=== PATIENT | female | born 1990 | race Caucasian/White ===

== ENCOUNTER → 2021-01-19 11:06 | Outpatient (CLI) | payer OTHER, SELFPAY ==
[2021-01-19 12:54] LABS: HCG Quantitative /Beta subunit 7609.1 mIU/mL
== END ==
PROVIDERS: Referring Provider Obstetrics & Gynecology; Visit Provider Obstetrics & Gynecology
DX: Z34.01 Encounter for supervision of normal first pregnancy, first trimester (principal)
CPT/HCPCS: 36415; 84702

== ENCOUNTER → 2021-02-03 11:58 | Outpatient (CLI) | payer OTHER, SELFPAY ==
--- NOTE | 2021-02-03 11:59 | DI.US.S_ITS ---
PROCEDURE: US OB <= 14 WEEKS FETUS INDICATIONS: DATES OUTSIDE/PRIOR DATING DATA: Last menstrual period (LMP): Unknown. LMP-based estimated date of delivery (SATISH): Not applicable. First dating scan (date and location): 02/03/2021. Estimated date of delivery (SATISH) from first dating scan: 09/21/2021. TECHNIQUE: Real-time scanning was performed of the fetus and maternal pelvic organs, with image documentation. Endovaginal scanning was also performed to better visualize the fetus and maternal ovaries. COMPARISON: None. FINDINGS: Embryo: [place]-rump length is 1.1 centimeters, corresponding to a gestational age of 7 weeks 1 day. Heart rate: 168 beats per minute Measurement variability in dating: +/- 4 weeks by LMP, +/- 7 days by mean sac diameter (use before 6 weeks gestation if crown-rump length not able to be measured), +/- 5 days by crown-rump length (up to 8 weeks 6 days gestation), +/- 7 days by crown-rump length (up to 13 weeks 6 days gestation). Maternal organs: Ovaries unremarkable other than a right corpus luteum cyst. IMPRESSION: Single live intrauterine gestation with estimated ultrasound age of 7 weeks 1 day. Dictated by: Rosendo Leonardo M.D. on 02/03/2021 at 12:42 Approved by: Rosendo Leonardo M.D. on 02/03/2021 at 12:43
== END ==
PROVIDERS: Referring Provider Obstetrics & Gynecology; Visit Provider Obstetrics & Gynecology
DX: Z34.01 Encounter for supervision of normal first pregnancy, first trimester (principal); Z3A.01 Less than 8 weeks gestation of pregnancy
CPT/HCPCS: 76801; 76817

== ENCOUNTER → 2021-02-27 13:30 | Outpatient (CLI) | payer OTHER, SELFPAY ==
[2021-02-27 14:22] LABS: Add Manual Diff / Slide Review NO; Basophils Absolute Auto 0 /uL (0-100); Basophils Percent Auto 0.2 % (0-2); Eosinophils Absolute Auto 100 /uL (0-450); Eosinophils Percent Auto 0.6 % (2-4); Hemoglobin 11.5 g/dL (12.0-16.0); Lymphocytes Absolute Auto 3400 /uL (1100-4500); Lymphocytes Percent Auto 18.3 % (25-40); Mean Corpuscular HGB Conc 32.9 % (30-36); Mean Corpuscular Hemoglobin 28.8 PG (26-34); Mean Corpuscular Volume 87.5 fL (80-100); Monocytes Absolute Auto 900 /uL (0-900); Monocytes Percent Auto 4.9 % (3-14); Neutrophils Absolute Auto 13900 /uL (1500-7000); Platelet Count 354 X10^3/uL (150-400); Red Cell Distribution Width 13.3 % (11.6-14.8); White Blood Cell Count 18.3 X10^3/uL (4.5-11.0)
[2021-02-27 14:38] LABS: Appearance Urine UA CLOUDY; Bilirubin Urine UA NEGATIVE (NEGATIVE); Color Urine UA YELLOW; Glucose Urine UA NEGATIVE (Negative); Ketones Urine UA 1+ (NEGATIVE); Leukocyte Esterase Urine UA 2+ (NEGATIVE); Nitrite Urine UA NEGATIVE (Negative); Occult Blood Urine UA 2+ (Negative); Protein Urine UA 1+ (Negative); Specific Gravity Urine UA >=1.030 (1.000-1.035); Urobilinogen Urine UA 0.2 E.U./dL (0.2)
[2021-02-27 14:43] LABS: Bacteria Urine Many (>30); RBC Urine 5-10/HPF (0-5/HPF); Squamous Epithelial Cell Urine >30 /HPF (0-5/HPF); WBC Urine 10-30/HPF (0-5/HPF)
[2021-02-27 16:30] LABS: HIV 1 & 2 Ab/Ag 4th Gen Combo NEGATIVE (NEGATIVE); Hep C Virus Ab w/Reflex Quant NEGATIVE s/c (NEGATIVE); Hepatitis B Surface Antigen NEGATIVE s/c (NEGATIVE)
[2021-02-28 08:11] LABS: RPR Screen Non Reactive (Non Reactive); Varicella IgG Antibody <135 index (Immune >165)
== END ==
PROVIDERS: Referring Provider Obstetrics & Gynecology; Visit Provider Obstetrics & Gynecology
DX: Z34.01 Encounter for supervision of normal first pregnancy, first trimester (principal)
CPT/HCPCS: 36415; 80055; 81003; 81015; 86787; 86803; 86850; 86900; 86901; 87086; 87389

== ENCOUNTER 2021-03-28 13:55 | Emergency (ER) | payer OTHER, SELFPAY ==
[2021-03-28 14:12] VITALS: BP 148/71; PULSE 87; RESP 20; TEMP 36.6; O2SAT 100; BMI 37.8
[2021-03-28 14:40] LABS: Amorphous Sediment Urine 1+; Bacteria Urine Many (>30); Culture Indicated Urine Cult Not Indicated; RBC Urine 1-5/HPF (0-5/HPF); Squamous Epithelial Cell Urine >30 /HPF (0-5/HPF); WBC Urine >100/HPF (0-5/HPF)
--- NOTE | 2021-03-28 16:01 | ED_ITS ---
HPI - General Adult General Chief complaint: Abdominal Pain Stated complaint: Lower Lt Abd Pain Time Seen by Provider: 03/28/21 15:49 Source: patient Mode of arrival: Ambulatory Limitations: no limitations History of Present Illness HPI narrative: Patient is a 31-year-old female at approximately 14 weeks EGA who is here for evaluation of left-sided abdominal pain. States that it is started than the past 24 hours. No urinary symptoms. Does have some constipation but this is not unusual for her. No vaginal bleeding. No loss of fluid. No fevers. No urinary symptoms. No back pain. Nausea vomiting is improved. She has seen her OB doctor during this . She has had a ultrasound that has confirmed an intrauterine . Related Data Home Medications Medication Instructions Recorded Confirmed albuterol sulfate 90 mcg/actuation 1 inh INHALATION Q4-6H PRN 02/11/21 02/11/21 breath activated powder inhaler prenat.vits,bentley,ywa-[id number]-vfvoj 1 tab PO DAILY 02/11/21 02/11/21 Allergies Allergy/AdvReac Type Severity Reaction Status Date / Time No Known Drug Allergies Allergy Unverified 02/11/21 13:50 Review of Systems Respiratory Respiratory: Reports as per HPI and Reports system reviewed and no additional complaints, except as documented Gastrointestinal Gastrointestinal: Reports as per HPI and Reports system reviewed and no additional complaints, except as documented Genitourinary Genitourinary: Reports system reviewed and no additional complaints, except as documented and Reports as per HPI Musculoskeletal Musculoskeletal: Reports system reviewed and no additional complaints, except as documented Integumentary/Breasts Skin/Breast: Reports system reviewed and no additional complaints, except as documented Hematologic/Lymphatic On Anticoagulants: No Patient History Medical History ADHD (~1996) Asthma Degenerative disc disease (~2010) Depression Osteoarthritis (~2010) Scoliosis (~2010) Surgical History (Updated 02/11/21 @ 14:02 by Papito Ireland RN) [place] teeth removed (~2018) Family History (Updated 02/11/21 @ 14:00 by Papito Ireland RN) Mother Hypertension Hyperlipidemia Diabetes mellitus Depression TIA (transient ischemic attack) Father Rheumatoid arthritis Shingles Grandmother Diabetes mellitus TIA (transient ischemic attack) Cancer Grandfather Cancer Grandmother Unknown family medical history Grandfather Unknown family medical history Social History marital status: unmarried,living together household members: significant other lives independently: Yes caregiver/support person: No pets and animals: Yes (3 cats, 11 rabits, rescues cats and rabbits) occupational status: employed current occupational exposures/hazards: Yes (high stress enviornment) Previous occupational history: [employer] jaziel/quaker: None special jaziel needs: No travel history: recent (drove to [facility]) Smoking Status: Never smoker alcohol intake: former (prepregnancy very rare allergic) substance use type: does not use Smoking Status: Never smoker Substance Use Type: does not use Exam Initial Vital Signs Initial Vital Signs: Vital Signs Temperature 97.9 F 03/28/21 14:12 Pulse Rate 87 03/28/21 14:12 Respiratory Rate 20 03/28/21 14:12 Blood Pressure 148/71 H 03/28/21 14:12 Pulse Oximetry 100 03/28/21 14:12 Const General: cooperative and healthy appearing GI Palpation: soft, No firm and tender (Left adnexa slight tenderness) Skin General: no rashes or lesions noted Neuro General: patient alert, patient awake and moves all extremities Extrem General: normal to inspection Psych Appearance: grossly normal and well kempt Course Orders Ordered: ED Orders 03/28/21 14:10 Urine Microscopic Stat Vital Signs Vital signs: Vital Signs - 8 hr 03/28/21 14:12 Temperature 97.9 F Pulse Rate 87 Respiratory Rate 20 Blood Pressure 148/71 H Pulse Oximetry 100 Medical Decision Making Lab Data Labs: Lab Results 03/28/21 Range/Units 14:10 Urine RBC 1-5/hpf (0-5/HPF) Urine WBC >100/hpf H (0-5/HPF) Ur Squamous Epith Cells >30 /hpf H (0-5/HPF) Amorphous Sediment 1+ Urine Bacteria Many (>30) H (None) Ur Culture Indicated? Cult not indicated Point of Care Testing Test Results Positive Urine Dip Bedside Urine Glucose Negative Bedside Urine Bilirubin - Negative Bedside Urine Ketone - Negative Urine Specific [place] 1.020 Bedside Urine Occult Blood +/- Bedside Urine pH 7.0 Bedside Urine Protein +/- 15 Bedside Urine Urobilinogen - Negative Bedside Urine Nitrite - Negative Bedside Urine Leukocytes ++ 125 Esterase Point of care testing: Point of Care Testing Test Results Positive Urine Dip Bedside Urine Glucose Negative Bedside Urine Bilirubin - Negative Bedside Urine Ketone - Negative Urine Specific [place] 1.020 Bedside Urine Occult Blood +/- Bedside Urine pH 7.0 Bedside Urine Protein +/- 15 Bedside Urine Urobilinogen - Negative Bedside Urine Nitrite - Negative Bedside Urine Leukocytes ++ 125 Esterase MDM Narrative Medical decision making narrative: Bedside ultrasound does show intrauterine . There is movement and cardiac activity with a heart rate of 150. Urinalysis does appear to be a contaminated specimen. Urine culture was pending at the time of discharge. No vomiting. Nontoxic appearing. I feel that we can hold on further workup for now. Provided reassurance to the patient. She was given return precautions. She will keep all of her schedule medical point. She expressed understanding and agreement. Discharge Plan Departure Patient Disposition: Home Clinical Impression: Abdominal pain during Instructions: Acute Abdominal Pain Activity Restrictions/Additional Instructions: The bedside ultrasound does show movement with a heartbeat of 150. Keep all of your scheduled OB appointments. Return to the emergency department for any new or worsening symptoms Prescriptions: No Action prenat.vits,bentley,ajy-doia-[id number] Tablet 1 tab PO DAILY 0RF albuterol sulfate 90 mcg/actuation aerosol powdr breath activated 1 inh inhalation Q4-6H [id number] Referrals: Buster Gomez MD [Primary Care Provider] -
[2021-03-28 16:34] VITALS: BP 130/69; PULSE 77; RESP 18; O2SAT 100
== END 2021-03-28 16:38 | disposition home or self-care (01) ==
PROVIDERS: Emergency Provider Emergency Medicine; PCP Obstetrics & Gynecology
DX: O26.892 Other specified pregnancy related conditions, second trimester (principal); R10.9 Unspecified abdominal pain; Z3A.14 14 weeks gestation of pregnancy
CPT/HCPCS: 81003; 81015; 81025; 87086; 99282; 99283

== ENCOUNTER → 2021-04-28 10:43 | Outpatient (CLI) | payer OTHER, SELFPAY ==
[2021-05-04 21:08] LABS: AFP, Serum 31.5 ng/mL (.); Calc Gestational Age EDD (.); Estriol, Free 2.62 ng/mL (.); Inhibin A, Dimeric 134.08 pg/mL (.); Inhibin A, MoM 0.91 (.); Maternal Ethnicity Caucasian (.); Maternal Weight 189 lbs (.); Number of Fetuses No (.); OSBR Risk 1 IN 10000 (.); Results Report (.); Test Results *Screen Negative* (.); hCG, MoM 0.63 (.); hCG, Serum 14180 mIU/mL (.)
== END ==
PROVIDERS: PCP Obstetrics & Gynecology; Referring Provider Obstetrics & Gynecology; Visit Provider Obstetrics & Gynecology
DX: Z34.02 Encounter for supervision of normal first pregnancy, second trimester (principal); Z3A.19 19 weeks gestation of pregnancy
CPT/HCPCS: 36415; 82105; 82677; 84702; 86336

== ENCOUNTER → 2021-05-11 09:50 | Outpatient (CLI) | payer OTHER, SELFPAY ==
--- NOTE | 2021-05-11 09:51 | DI.US.S_ITS ---
PROCEDURE: US OB >= 14 WEEKS FETUS INDICATIONS: ANATOMY OUTSIDE/PRIOR DATING DATA: First dating scan (date and location): 02/03/2021. Estimated date of delivery (SATISH) from first dating scan: 09/21/2021. The calculations are made using the ultrasound SATISH of 09/21/2021. TECHNIQUE: Real-time scanning was performed of the fetus, with image documentation and biometric measurements. COMPARISON: [facility], , OB <= 14 WEEKS FETUS, 02/03/2021, 12:16. FINDINGS: General: A single living intrauterine gestation is present. Presentation: Vertex. Placenta: Placental position is fundal , without previa. Amniotic fluid index: 13.2 cm, normal range is 5-24 cm. heart rate: 143 beats per minute. Maternal cervical canal: 3.3 cm long. Normal lower limit is 2.5 cm. biometrics: Biparietal diameter: 20 weeks 3 days Head circumference: 20 weeks 4 days Abdominal circumference: 22 weeks Femur length: 21 weeks 5 days Clinically estimated gestational age: 21 weeks Composite gestational age from present scan: 21 weeks 1 day Estimated weight and percentile: 441 g; 80th percentile Anatomic survey: Neuro: Ventricles are non-dilated at less than 10 mm. Cisterna magna is normal at 3-11 mm. Cerebellum is normal in size and morphology. Nuchal skin fold: Normal at less than 6 mm between 14-21 weeks gestational age. Face: Nose and lips, facial profile are normal. Spine: No evidence for spina bifida. Heart: 4-chambered heart is present, with normal ventricular outflow tracts. Diaphragm: Diaphragm is intact. Stomach: Left-sided stomach is present. Kidneys: No hydronephrosis. Normal is less than 5 mm in 2nd trimester, less than 7 mm in 3rd trimester. Cord: 3-vessel cord has orthotopic insertion. Bladder: Normal in size. Extremities: All 4 extremities identified. IMPRESSION: 1. Single living IUP redemonstrated and interval growth is normal. 2. Normal anatomic survey. We strive to produce accurate, complete, and clear reports of imaging services. To assist us in improving patient care, this report was composed using standard report templates and voice recognition software. Therefore, it may contain abnormal punctuation, insertions and/or omissions. Occasional wrong-word or sound-alike substitutions may occur. Though we review the report and make efforts to correct it, we do recommend that the report be read carefully in proper context to recognize any text inaccuracies. Dictated by: Ramesh SMITH Interpreted: Ugo Hardy MD on 05/11/2021 at 12:58 Transcribed by: WILIAM on 05/11/2021 at 13:00 Approved by: Ugo Hardy M.D. on 05/11/2021 at 13:54
== END ==
PROVIDERS: PCP Obstetrics & Gynecology; Referring Provider Obstetrics & Gynecology; Visit Provider Obstetrics & Gynecology
DX: Z34.02 Encounter for supervision of normal first pregnancy, second trimester (principal); Z3A.21 21 weeks gestation of pregnancy
CPT/HCPCS: 76811

== ENCOUNTER → 2021-06-15 11:23 | Outpatient (CLI) | payer OTHER, SELFPAY ==
[2021-06-15 13:27] LABS: Hematocrit 32.6 % (36-46); Hemoglobin 11.1 g/dL (12.0-16.0)
[2021-06-15 14:01] LABS: GTT (PREG) 1 Hour PP 50gm Dose 116 mg/dL (76-139)
== END ==
PROVIDERS: PCP Obstetrics & Gynecology; Referring Provider Obstetrics & Gynecology; Visit Provider Obstetrics & Gynecology
DX: Z34.02 Encounter for supervision of normal first pregnancy, second trimester (principal); Z3A.25 25 weeks gestation of pregnancy
CPT/HCPCS: 82950; 85014; 85018

== ENCOUNTER → 2021-08-04 11:03 | Outpatient (CLI) | payer OTHER, SELFPAY ==
[2021-08-04 11:46] LABS: Creatinine Urine Random 65.3 mg/dL; Protein (Total) Urine Random 10 mg/dL (0-12); Protein Creatinine Ratio Urine 0.15 GRAM/24H
== END ==
PROVIDERS: PCP Obstetrics & Gynecology; Visit Provider Obstetrics & Gynecology
DX: O16.3 Unspecified maternal hypertension, third trimester (principal)
CPT/HCPCS: 82570; 84156

== ENCOUNTER 2021-08-04 11:04 | Outpatient (CLI) | payer OTHER, SELFPAY ==
--- NOTE | 2021-08-04 13:15 | PM.OBTRLD ---
Visit Information Visit Information Date of evaluation: 08/04/21 Primary OB Provider: Buster Gomez Reason for Evaluation: Yes non-stress test Comments/Additional reasons for admission: Mayda presents to the center for NST and blood pressure monitoring after elevated pressures noted at the time of her routine OB visit earlier today. PIH/pec labs obtained and submitted. Vital Signs Vital Signs: 137/78; 124/60; 122/72; 123/76 [facility] Medical History ADHD (~1996) Asthma Degenerative disc disease (~2010) Depression Osteoarthritis (~2010) Scoliosis (~2010) Surgical History [place] teeth removed (~2018) Family History Mother Hypertension Hyperlipidemia Diabetes mellitus Depression TIA (transient ischemic attack) Father Rheumatoid arthritis Shingles Grandmother Diabetes mellitus TIA (transient ischemic attack) Cancer Grandfather Cancer Grandmother Unknown family medical history Grandfather Unknown family medical history Social History marital status: unmarried,living together household members: significant other lives independently: Yes caregiver/support person: No pets and animals: Yes (3 cats, 11 rabits, rescues cats and rabbits) occupational status: employed current occupational exposures/hazards: Yes (high stress enviornment) Previous occupational history: [employer] jaziel/tenriism: None special jaziel needs: No travel history: recent (drove to [facility]) Smoking Status: Never smoker alcohol intake: former (prepregnancy very rare allergic) substance use type: does not use Review of Systems Review of Systems Narrative: Patient denies visual changes, headaches, or right upper quadrant pain. Baby is active. Exam Narrative Exam Narrative: See office note, 08/04/2021. Objective Labs Labs: PLT: 285 Urine Protein:Creatinine : .15 LFT's: Uric Acid: Evaluation Evaluation Baseline heart rate: 135 Variability: Moderate (11-25) monitor accelerations: Present Monitor Decelerations: Absent Category of Tracing: Reactive Diagnosis, Plan/Disposition Plan/Disposition Plan: ASSESSMENT 1. Intrauterine gestation, Mustafa, 33+ weeks gestational age 2. Gestational hypertension, non severe with no laboratory or clinical evidence of preeclampsia PLAN 1. TID BP monitoring at home 2. Patient counseled at length regarding signs/symptoms of severe blood pressure elevation/preeclampsia 3. Weekly NSTs with blood pressure monitoring and labs as needed in association with weekly CORAL visits for the duration of the . 4. Initiate antihypertensive therapy if blood pressures approach/reach severe levels and deliver as appropriate should preeclampsia developed. OB Disposition: home
== END 2021-08-04 13:08 | disposition home or self-care (01) ==
LOC: LABOR 11:58 → OB 08-06 06:55
PROVIDERS: PCP Obstetrics & Gynecology; Referring Provider Obstetrics & Gynecology; Visit Provider Obstetrics & Gynecology
DX: O13.3 Gestational [pregnancy-induced] hypertension without significant proteinuria, third trimester (principal); O47.03 False labor before 37 completed weeks of gestation, third trimester; Z3A.33 33 weeks gestation of pregnancy; O16.3 Unspecified maternal hypertension, third trimester
CPT/HCPCS: 36415; 59025; 80053; 82570; 84156; 84550; 85025; G0378; G0379

== ENCOUNTER → 2021-08-04 11:08 | Outpatient (CLI) | payer OTHER, SELFPAY ==
[2021-08-04 12:19] LABS: Add Manual Diff / Slide Review NO; Basophils Absolute Auto 0 /uL (0-100); Basophils Percent Auto 0.2 % (0-2); Eosinophils Absolute Auto 100 /uL (0-450); Eosinophils Percent Auto 0.4 % (2-4); Hemoglobin 12.3 g/dL (12.0-16.0); Lymphocytes Absolute Auto 2400 /uL (1100-4500); Lymphocytes Percent Auto 15.1 % (25-40); Mean Corpuscular HGB Conc 34.1 % (30-36); Mean Corpuscular Hemoglobin 29.6 PG (26-34); Mean Corpuscular Volume 86.9 fL (80-100); Monocytes Absolute Auto 1100 /uL (0-900); Neutrophils Absolute Auto 12400 /uL (1500-7000); Neutrophils Percent Auto 77.3 % (50-75); Platelet Count 285 X10^3/uL (150-400); Red Blood Cell Count 4.15 X10^6/uL (4.0-5.2); Red Cell Distribution Width 13.3 % (11.6-14.8)
[2021-08-04 18:11] LABS: Alanine Aminotransferase 15 IU/L (<35); Albumin 3.7 g/dL (3.5-5.0); Albumin Globulin Ratio 0.9 (1.0-2.8); Alkaline Phosphatase 135 U/L (38-126); Aspartate Aminotransferase 24 IU/L (14-36); BUN Creatinine Ratio 13.5 (6-22); Bilirubin Total 0.4 mg/dL (0.2-1.3); Blood Urea Nitrogen 7 mg/dL (7-17); Carbon Dioxide 21 mmol/L (22-32); Chloride 107 mmol/L (98-107); Estimated Glomerular Filt Rate > 60.0 mL/min (>60); Globulin 4.1 g/dL (1.7-4.1); Glucose 92 mg/dL (70-100); HEMOLYSIS < 15 (0-50); Potassium 3.3 mmol/L (3.4-5.1); Sodium 137 mmol/L (137-145); Total Protein 7.8 g/dL (6.3-8.2); Uric Acid 5.3 mg/dL (2.5-6.2)
== END ==
PROVIDERS: PCP Obstetrics & Gynecology; Referring Provider Obstetrics & Gynecology; Visit Provider Obstetrics & Gynecology
DX: O16.3 Unspecified maternal hypertension, third trimester (principal)
CPT/HCPCS: 36415; 80053; 84550; 85025

== ENCOUNTER 2021-08-05 09:11 | Emergency (ER) | payer OTHER, SELFPAY ==
[2021-08-05] VITALS (16 sets, daily range): BP systolic 127–152; BP diastolic 67–90; PULSE 68–88; RESP 15–20; TEMP 37.2; O2SAT 95–100; BMI 38.0
--- NOTE | 2021-08-05 09:16 | DI.US.S_ITS ---
PROCEDURE: US OB >= 14 WEEKS FETUS INDICATIONS: HTN OUTSIDE/PRIOR DATING DATA: Last menstrual period (LMP): Un known LMP-based estimated date of delivery (SATISH): Unknown. First dating scan (date and location): 02/03/2021 Estimated date of delivery (SATISH) from first dating scan: 09/21/2021 The calculations are made using the study generated SATISH of 09/21/2021. TECHNIQUE: Real-time scanning was performed of the fetus, with image documentation and biometric measurements. Endovaginal scanning: Not indicated COMPARISON: [facility], OB >= 14 WEEKS FETUS, 05/11/2021, 10:17. FINDINGS: General: A single living intrauterine gestation is present. Presentation: Vertex Placenta: Placental position is fundal, without previa. Amniotic fluid index: 21.0 cm, normal range is 5-24 cm. Single deepest vertical pocket is 11.6 cm. heart rate: 144 beats per minute. Maternal cervical canal: 3.1 cm long. Normal lower limit is 2.5 cm. biometrics: Biparietal diameter: 8.4 cm, 33 weeks, 6 days. Head circumference: 30.5 cm, 33 weeks, 6 days. Abdominal circumference: 29.5 cm, 33 weeks, 3 days. Femur length: 6.6 cm, 34 weeks, 0 day. Clinically estimated gestational age: 33 weeks, 2 days Composite gestational age from present scan: 33 weeks, 6 days. Estimated weight and percentile: 2259 g, 55% IMPRESSION: 1. Single live intrauterine gestation with fetus in vertex presentation. heart rate is 144 beats per minute. JEWEL equals 21 cm and is within normal limits. Normal growth. Estimated weight is at 55%. We strive to produce accurate, complete, and clear reports of imaging services. To assist us in improving patient care, this report was composed using standard report templates and voice recognition software. Therefore, it may contain abnormal punctuation, insertions and/or omissions. Occasional wrong-word or sound-alike substitutions may occur. Though we review the report and make efforts to correct it, we do recommend that the report be read carefully in proper context to recognize any text inaccuracies. Dictated by: Jarod Montes M.D. on 08/05/2021 at 10:12 Approved by: Jarod Montes M.D. on 08/05/2021 at 10:14
--- NOTE | 2021-08-05 09:25 | ED.PREGNANCY ---
HPI - General Chief complaint: Hypertension Stated complaint: hypertension, 32 weeks Time Seen by Provider: 08/05/21 09:11 Source: patient Mode of arrival: EMS Limitations: no limitations History of Present Illness HPI Narrative: Patient is a 31-year-old female presenting today with hypertension. She is followed by Dr. Gomez here at the hospital. She was seen and evaluated yesterday noted to have slightly elevated blood pressures in the 140s. Presenting today with higher blood pressures. At home she reports a systolic of 160 or 170, EMS were initially reported a systolic of 205 however her current blood pressure is 148/80. She has minimal epigastric pain. She has no headache visual changes abdominal pain vaginal bleeding or any vaginal leakage. She had not yet been started on any sort of hypertension medications. She has attempted to call her OB as she was instructed to put there was no answer she got nervous and came to the emergency department. Related Data Home Medications Medication Instructions Recorded Confirmed albuterol sulfate 90 mcg/actuation 1 inh INHALATION Q4-6H PRN 02/11/21 07/21/21 breath activated powder inhaler prenat.vits,bentley,[id number] 1 tab PO DAILY 02/11/21 07/21/21 Previous Rx's Medication Instructions Recorded ondansetron 4 mg disintegrating 4 mg PO Q6-8H PRN #20 tab 04/01/21 tablet metronidazole 0.75 % vaginal gel 1 appful VAGINAL BEDTIME 5 Days 05/22/21 (Metrogel Vaginal) #70 g labetalol 200 mg tablet 400 mg PO BID #60 tab 08/05/21 Allergies Allergy/AdvReac Type Severity Reaction Status Date / Time No Known Drug Allergies Allergy Verified 08/05/21 09:15 Review of Systems Review of Systems Narrative: GENERAL: Denies chills, fatigue, malaise, fever, sweats, travel HEENT: Denies sinus pain, ear pain, sore throat, difficulty swallowing, neck pain RESPIRATORY: Denies dyspnea, cough, wheezing, hemoptysis, sputum. CARDIOVASCULAR: Denies chest pain, palpitations, orthopnea, edema GASTROINTESTINAL: Denies nausea, vomiting, abdominal pain, diarrhea, constipation, melena. : Denies dysuria, frequency, incontinence, hematuria, urinary retention, flank pain. MUSCULOSKELETAL: Denies weakness, joint pain, or bony pain SKIN: No rash, no erythema, no pruritus NEUROLOGIC: Denies weakness, dizziness, headache, numbness, change in speech, confusion PSYCHIATRIC: No concerning psychosocial issues. 12 point review of systems is negative except for those stated above and HPI Exam Initial Vital Signs Initial Vital Signs: Vital Signs Temperature 99.0 F 08/05/21 09:10 Pulse Rate 88 08/05/21 09:10 Respiratory Rate 15 08/05/21 09:10 Blood Pressure 148/88 H 08/05/21 09:10 Pulse Oximetry 100 08/05/21 09:10 GENERAL: Appearing 31 year painand in no acute distress. HEENT: Head atraumatic,EOMI, pupils reactive, face symmetric, moist mucous membranes CARDIOVASCULAR: Regular rate and rhythm without murmurs, rubs or gallops. RESPIRATORY: Breath sounds equal bilaterally, no wheezes rales or rhonchi. ABDOMEN: Soft, gravid no tenderness : No CVA tenderness EXTREMITIES: Normal range of motion, no clubbing or edema. Neurovascularly intact NEUROLOGICAL: Alert and oriented x4.Normal gait and speech. SKIN: Warm, dry, no laceration, no petechiae, no rashes or lesions. Course Orders Ordered: ED Orders 08/05/21 09:16 US OB >= 14 weeks Fetus Stat 08/05/21 09:26 CBC Auto Diff [Complete Blood Count AUTO DIFF] Stat CMP [Comprehensive Metabolic Panel] Stat Magnesium Stat PT [Prothrombin Time INR] Stat PTT [Partial Thromboplastin Time] Stat 08/05/21 10:15 UA Complete [Urinalysis and Microscopic] Stat Discontinued Medications Labetalol HCl (Labetalol 20 Mg/4 Ml Syringe) 10 mg IV NOW ONE Stop: 08/05/21 09:26 Last Admin: 08/05/21 09:34 Dose: 10 mg Documented by: RICKEY Labetalol HCl (Labetalol 100 Mg Tablet) 200 mg PO NOW ONE Stop: 08/05/21 11:01 Last Admin: 08/05/21 11:39 Dose: 200 mg Documented by: RICKEY Vital Signs Vital signs: Vital Signs - 8 hr 08/05/21 09:10 08/05/21 09:16 08/05/21 09:30 Temperature 99.0 F Pulse Rate 88 80 80 Respiratory Rate 15 15 15 Blood Pressure 148/88 H 139/90 Pulse Oximetry 100 100 100 08/05/21 09:34 08/05/21 09:45 08/05/21 09:54 Temperature Pulse Rate 86 68 79 Respiratory Rate 17 20 Blood Pressure 139/90 152/67 H Pulse Oximetry 99 99 08/05/21 10:05 08/05/21 10:21 08/05/21 10:28 Temperature Pulse Rate 82 82 Respiratory Rate 18 Blood Pressure 152/67 H 149/74 H Pulse Oximetry 95 08/05/21 10:30 08/05/21 10:45 08/05/21 11:00 Temperature Pulse Rate 81 82 87 Respiratory Rate 20 20 18 Blood Pressure Pulse Oximetry 99 98 97 08/05/21 11:15 08/05/21 11:29 08/05/21 11:30 Temperature Pulse Rate 88 88 Respiratory Rate 20 20 Blood Pressure 127/70 Pulse Oximetry 97 97 08/05/21 11:39 Temperature Pulse Rate 88 Respiratory Rate Blood Pressure 127/70 Pulse Oximetry MDM - OB/Uterine Contractions Lab Data Result diagrams: 08/05/21 09:26 08/05/21 09:26 Labs: Lab Results 08/05/21 08/05/21 08/05/21 Range/Units 09:26 09:26 09:26 WBC 17.2 H (4.5-11.0) X10^3/uL RBC 4.23 (4.0-5.2) X10^6/uL Hgb 12.4 (12.0-16.0) g/dL Hct 36.8 (36-46) % MCV 87.0 (80-100) fL MCH 29.2 (26-34) PG MCHC 33.6 (30-36) % RDW 13.5 (11.6-14.8) % Plt Count 274 (150-400) X10^3/uL Neut % (Auto) 74.9 (50-75) % Lymph % (Auto) 17.1 L (25-40) % [place] % (Auto) 6.9 (3-14) % Eos % (Auto) 0.5 L (2-4) % Baso % (Auto) 0.6 (0-2) % Neut # (Auto) 87856 H (9347-9204) /uL Lymph # (Auto) 2900 (6783-9068) /uL [place] # (Auto) 1200 H (0-900) /uL Eos # (Auto) 100 (0-450) /uL Baso # (Auto) 100 (0-100) /uL PT 11.4 (10.1-12.7) SECONDS INR 1.0 (0.9-1.3) APTT 28 (26.4-36.2) SECONDS Sodium 138 (137-145) mmol/L Potassium 3.8 (3.4-5.1) mmol/L Chloride 106 (98-107) mmol/L Carbon Dioxide 22 (22-32) mmol/L BUN 5 L (7-17) mg/dL Creatinine 0.52 (0.52-1.04) mg/dL Estimated GFR > 60.0 (>60) mL/min BUN/Creatinine Ratio 9.6 (6-22) Glucose 82 (70-100) mg/dL Calcium 8.8 (8.4-10.2) mg/dL Magnesium 1.7 (1.6-2.3) mg/dL Total Bilirubin 0.5 (0.2-1.3) mg/dL AST 26 (14-36) IU/L ALT 14 (<35) IU/L Alkaline Phosphatase 153 H (38-126) U/L Total Protein 8.2 (6.3-8.2) g/dL Albumin 3.8 (3.5-5.0) g/dL Globulin 4.4 H (1.7-4.1) g/dL Albumin/Globulin Ratio 0.9 L (1.0-2.8) Urine Color Urine Appearance Urine pH (4.5-8.0) Ur Specific [place] (1.000-1.035) Urine Protein (Negative) Urine Glucose (UA) (Negative) g/dL Urine Ketones (NEGATIVE) Urine Occult Blood (Negative) Urine Nitrate (Negative) Urine Bilirubin (NEGATIVE) Urine Urobilinogen (0.2) E.U./dL Ur Leukocyte Esterase (NEGATIVE) Urine RBC (0-5/HPF) Urine WBC (0-5/HPF) Ur Squamous Epith Cells (0-5/HPF) Urine Bacteria (None) Ur Culture Indicated? 08/05/21 Range/Units 10:15 WBC (4.5-11.0) X10^3/uL RBC (4.0-5.2) X10^6/uL Hgb (12.0-16.0) g/dL Hct (36-46) % MCV (80-100) fL MCH (26-34) PG MCHC (30-36) % RDW (11.6-14.8) % Plt Count (150-400) X10^3/uL Neut % (Auto) (50-75) % Lymph % (Auto) (25-40) % [place] % (Auto) (3-14) % Eos % (Auto) (2-4) % Baso % (Auto) (0-2) % Neut # (Auto) (3878-2613) /uL Lymph # (Auto) (8412-0898) /uL [place] # (Auto) (0-900) /uL Eos # (Auto) (0-450) /uL Baso # (Auto) (0-100) /uL PT (10.1-12.7) SECONDS INR (0.9-1.3) APTT (26.4-36.2) SECONDS Sodium (137-145) mmol/L Potassium (3.4-5.1) mmol/L Chloride (98-107) mmol/L Carbon Dioxide (22-32) mmol/L BUN (7-17) mg/dL Creatinine (0.52-1.04) mg/dL Estimated GFR (>60) mL/min BUN/Creatinine Ratio (6-22) Glucose (70-100) mg/dL Calcium (8.4-10.2) mg/dL Magnesium (1.6-2.3) mg/dL Total Bilirubin (0.2-1.3) mg/dL AST (14-36) IU/L ALT (<35) IU/L Alkaline Phosphatase (38-126) U/L Total Protein (6.3-8.2) g/dL Albumin (3.5-5.0) g/dL Globulin (1.7-4.1) g/dL Albumin/Globulin Ratio (1.0-2.8) Urine Color Yellow Urine Appearance Cloudy Urine pH 7.5 (4.5-8.0) Ur Specific [place] 1.010 (1.000-1.035) Urine Protein Negative (Negative) Urine Glucose (UA) Negative (Negative) g/dL Urine Ketones Negative (NEGATIVE) Urine Occult Blood Trace-intact (Negative) Urine Nitrate Negative (Negative) Urine Bilirubin Negative (NEGATIVE) Urine Urobilinogen 0.2 (0.2) E.U./dL Ur Leukocyte Esterase 3+ H (NEGATIVE) Urine RBC None seen (0-5/HPF) Urine WBC 10-30/hpf H (0-5/HPF) Ur Squamous Epith Cells >30 /hpf H (0-5/HPF) Urine Bacteria None seen (None) Ur Culture Indicated? Cult not indicated Urine Dip Bedside Urine Glucose Negative Bedside Urine Bilirubin - Negative Bedside Urine Ketone - Negative Urine Specific [place] 1.015 Bedside Urine Occult Blood +/- Bedside Urine pH 7.5 Bedside Urine Protein - Negative Bedside Urine Urobilinogen 0.2 Bedside Urine Nitrite - Negative Bedside Urine Leukocytes +++ 500 Esterase Imaging Data US - OB: Radiologist's Impression: PROCEDURE:? US OB >= 14 WEEKS FETUS ? INDICATIONS:? HTN ? OUTSIDE/PRIOR DATING DATA:? Last menstrual period (LMP):? Un known LMP-based estimated date of delivery (SATISH):? Unknown. First dating scan (date and location):? 02/03/2021 Estimated date of delivery (SATISH) from first dating scan:? 09/21/2021 The calculations are made using the study generated SATISH of 09/21/2021. ? TECHNIQUE:? Real-time scanning was performed of the fetus, with image documentation and biometric measurements.? Endovaginal scanning:? Not indicated ? COMPARISON:[facility], US OB >= 14 WEEKS FETUS, 05/11/2021, 10:17. ? ? FINDINGS:? ? General:? A single living intrauterine gestation is present.? Presentation:? Vertex Placenta:? Placental position is fundal, without previa.? Amniotic fluid index:? 21.0 cm, normal range is 5-24 cm.? Single deepest vertical pocket is 11.6 cm. heart rate:? 144 beats per minute.? Maternal cervical canal:? 3.1 cm long.? Normal lower limit is 2.5 cm.? ? biometrics:? Biparietal diameter:? 8.4 cm, 33 weeks, 6 days. Head circumference:? 30.5 cm, 33 weeks, 6 days. Abdominal circumference:? 29.5 cm, 33 weeks, 3 days. Femur length:? 6.6 cm, 34 weeks, 0 day. Clinically estimated gestational age:? 33 weeks, 2 days Composite gestational age from present scan:? 33 weeks, 6 days. Estimated weight and percentile:? 2259 g, 55% ? ? IMPRESSION:? 1. Single live intrauterine gestation with fetus in vertex presentation.? heart rate is 144 beats per minute.? JEWEL equals 21 cm and is within normal limits.? Normal growth.? Estimated weight is at 55%. ? We strive to produce accurate, complete, and clear reports of imaging services. To assist us in improving patient care, this report was composed using standard report templates and voice recognition software. Therefore, it may contain abnormal punctuation, insertions and/or omissions. Occasional wrong-word or sound-alike substitutions may occur. Though we review the report and make efforts to correct it, we do recommend that the report be read carefully in proper context to recognize any text inaccuracies. ? Dictated by: Jarod Montes M.D. on 08/05/2021 at 10:12 ? ? Approved by: Jarod Montes M.D. on 08/05/2021 at 10:14 ? MDM Narrative Medical decision making narrative: Patient's blood pressure is mildly elevated no sign of preeclampsia at this time no protein in her urine. She is given 1 dose of labetalol here in the ED it does improve a little bit and then starts to rise again slowly. She is otherwise asymptomatic. 11am Dr. Gomez, patient's OB has been notified of patient's findings. Agrees at this time no some evidence of preeclampsia home he will send in prescription of labetalol 200 mg twice a day and strongly encourage is patient to follow-up in office. Discharge Plan Departure Patient Disposition: Home Clinical Impression: Hypertension affecting Instructions: Pre-eclampsia Activity Restrictions/Additional Instructions: *You have been diagnosed with attention in *What to do: Please continue to check your blood pressures as previously directed with OB 3 times a day. If blood pressure is greater than 140/90 please report this and if blood pressure greater than 150/100 report to center. *Continue to take medications as directed Labetalol 200 mg twice a day--Dr. Gomez is sending this into the pharmacy for you if there are issues please call discussed with his nurse *Follow up with your primary care provider in 2-3 days or call [phone] Gomez and follow *Return to ER if you should have elevated blood pressures, abdominal pain, vaginal bleeding, headaches or any new, worsening or concerning symptoms Prescriptions: No Action ondansetron 4 mg tablet,disintegrating 4 mg PO Q6-8H PRN (Reason: nausea and vomiting) Qty: 20 2RF labetalol 200 mg tablet 400 mg PO BID Qty: 60 3RF prenat.vits,bentley,[id number] Tablet 1 tab PO DAILY 0RF albuterol sulfate 90 mcg/actuation aerosol powdr breath activated 1 inh inhalation Q4-6H PRN0RF metronidazole [Metrogel Vaginal] 0.75 % gel 1 appful vaginal BEDTIME 5 Days Qty: 70 4RF Referrals: Buster Gomez MD [Primary Care Provider] -
[2021-08-05 09:33] LABS: Add Manual Diff / Slide Review NO; Basophils Absolute Auto 100 /uL (0-100); Basophils Percent Auto 0.6 % (0-2); Eosinophils Absolute Auto 100 /uL (0-450); Eosinophils Percent Auto 0.5 % (2-4); Hematocrit 36.8 % (36-46); Hemoglobin 12.4 g/dL (12.0-16.0); Lymphocytes Absolute Auto 2900 /uL (1100-4500); Lymphocytes Percent Auto 17.1 % (25-40); Mean Corpuscular HGB Conc 33.6 % (30-36); Mean Corpuscular Hemoglobin 29.2 PG (26-34); Monocytes Absolute Auto 1200 /uL (0-900); Monocytes Percent Auto 6.9 % (3-14); Neutrophils Absolute Auto 12900 /uL (1500-7000); Neutrophils Percent Auto 74.9 % (50-75); Platelet Count 274 X10^3/uL (150-400); Red Blood Cell Count 4.23 X10^6/uL (4.0-5.2); Red Cell Distribution Width 13.5 % (11.6-14.8); White Blood Cell Count 17.2 X10^3/uL (4.5-11.0)
[2021-08-05] MEDS: LABETALOL 20 MG/4 ML SYRINGE 10 MG IV (09:34)
[2021-08-05 09:41] LABS: Prothrombin Time 11.4 SECONDS (10.1-12.7)
[2021-08-05 09:44] LABS: PTT Partial Thromboplastin Tim 28 SECONDS (26.4-36.2)
[2021-08-05 09:45] LABS: Alanine Aminotransferase 14 IU/L (<35); Albumin 3.8 g/dL (3.5-5.0); Albumin Globulin Ratio 0.9 (1.0-2.8); Alkaline Phosphatase 153 U/L (38-126); Aspartate Aminotransferase 26 IU/L (14-36); BUN Creatinine Ratio 9.6 (6-22); Bilirubin Total 0.5 mg/dL (0.2-1.3); Blood Urea Nitrogen 5 mg/dL (7-17); Calcium 8.8 mg/dL (8.4-10.2); Carbon Dioxide 22 mmol/L (22-32); Chloride 106 mmol/L (98-107); Estimated Glomerular Filt Rate > 60.0 mL/min (>60); Globulin 4.4 g/dL (1.7-4.1); Glucose 82 mg/dL (70-100); HEMOLYSIS 27 (0-50); Magnesium 1.7 mg/dL (1.6-2.3); Potassium 3.8 mmol/L (3.4-5.1); Sodium 138 mmol/L (137-145); Total Protein 8.2 g/dL (6.3-8.2)
[2021-08-05 10:22] LABS: Appearance Urine UA CLOUDY; Bilirubin Urine UA NEGATIVE (NEGATIVE); Color Urine UA YELLOW; Glucose Urine UA NEGATIVE (Negative); Ketones Urine UA NEGATIVE (NEGATIVE); Leukocyte Esterase Urine UA 3+ (NEGATIVE); Nitrite Urine UA NEGATIVE (Negative); Occult Blood Urine UA TRACE-INTACT (Negative); Protein Urine UA NEGATIVE (Negative); Urobilinogen Urine UA 0.2 E.U./dL (0.2)
[2021-08-05 10:23] LABS: pH Urine UA 7.5 (4.5-8.0)
[2021-08-05 10:28] LABS: Culture Indicated Urine Cult Not Indicated; RBC Urine None Seen (0-5/HPF); Squamous Epithelial Cell Urine >30 /HPF (0-5/HPF); WBC Urine 10-30/HPF (0-5/HPF)
[2021-08-05 10:29] LABS: Bacteria Urine None Seen
[2021-08-05] MEDS: LABETALOL 100 MG TABLET 200 MG PO (11:39)
== END 2021-08-05 11:41 | disposition home or self-care (01) ==
PROVIDERS: Emergency Provider Emergency Medicine; PCP Obstetrics & Gynecology
DX: O13.3 Gestational [pregnancy-induced] hypertension without significant proteinuria, third trimester (principal); Z3A.32 32 weeks gestation of pregnancy
CPT/HCPCS: 36415; 76811; 80053; 81001; 81003; 83735; 85025; 85610; 85730; 96374; 99284

== ENCOUNTER 2021-08-07 13:45 | Outpatient (CLI) | payer OTHER, SELFPAY ==
[2021-08-07 15:30] LABS: Add Manual Diff / Slide Review NO; Basophils Absolute Auto 0 /uL (0-100); Basophils Percent Auto 0.3 % (0-2); Eosinophils Absolute Auto 100 /uL (0-450); Eosinophils Percent Auto 0.4 % (2-4); Hematocrit 33.5 % (36-46); Hemoglobin 11.2 g/dL (12.0-16.0); Lymphocytes Absolute Auto 2500 /uL (1100-4500); Lymphocytes Percent Auto 15.6 % (25-40); Mean Corpuscular HGB Conc 33.5 % (30-36); Mean Corpuscular Hemoglobin 29.5 PG (26-34); Monocytes Absolute Auto 900 /uL (0-900); Monocytes Percent Auto 5.5 % (3-14); Neutrophils Absolute Auto 12700 /uL (1500-7000); Neutrophils Percent Auto 78.2 % (50-75); Platelet Count 263 X10^3/uL (150-400); Red Cell Distribution Width 13.8 % (11.6-14.8); White Blood Cell Count 16.3 X10^3/uL (4.5-11.0)
[2021-08-07 16:01] LABS: Creatinine Urine Random 86.8 mg/dL; Protein (Total) Urine Random 6 mg/dL (0-12); Protein Creatinine Ratio Urine 0.06 GRAM/24H
[2021-08-07 16:17] LABS: Alanine Aminotransferase 12 IU/L (<35); Albumin 3.5 g/dL (3.5-5.0); Albumin Globulin Ratio 0.9 (1.0-2.8); Alkaline Phosphatase 141 U/L (38-126); Aspartate Aminotransferase 20 IU/L (14-36); BUN Creatinine Ratio 14.8 (6-22); Bilirubin Total 0.4 mg/dL (0.2-1.3); Blood Urea Nitrogen 8 mg/dL (7-17); Calcium 8.6 mg/dL (8.4-10.2); Carbon Dioxide 19 mmol/L (22-32); Chloride 107 mmol/L (98-107); Estimated Glomerular Filt Rate > 60.0 mL/min (>60); Globulin 3.8 g/dL (1.7-4.1); Glucose 81 mg/dL (70-100); HEMOLYSIS < 15 (0-50); Potassium 3.8 mmol/L (3.4-5.1); Sodium 136 mmol/L (137-145); Total Protein 7.3 g/dL (6.3-8.2); Uric Acid 5.7 mg/dL (2.5-6.2)
--- NOTE | 2021-08-07 17:47 | PM.OBTRLD ---
Visit Information Visit Information Date of evaluation: 08/07/21 Primary OB Provider: Buster Gomez Reason for Evaluation: Yes non-stress test and Yes other Comments/Additional reasons for admission: Mayda presents for evaluation of her blood pressure and for NST after identifying marked elevations at home with her blood pressure cuff. [facility], LAT[facility] Medical History ADHD (~1996) Asthma Degenerative disc disease (~2010) Depression Osteoarthritis (~2010) Scoliosis (~2010) Surgical History [place] teeth removed (~2018) Family History Mother Hypertension Hyperlipidemia Diabetes mellitus Depression TIA (transient ischemic attack) Father Rheumatoid arthritis Shingles Grandmother Diabetes mellitus TIA (transient ischemic attack) Cancer Grandfather Cancer Grandmother Unknown family medical history Grandfather Unknown family medical history Social History marital status: unmarried,living together household members: significant other lives independently: Yes caregiver/support person: No pets and animals: Yes (3 cats, 11 rabits, rescues cats and rabbits) occupational status: employed current occupational exposures/hazards: Yes (high stress enviornment) Previous occupational history: [employer] jaziel/mandaen: None special jaziel needs: No travel history: recent (drove to [facility]) Smoking Status: Never smoker alcohol intake: former (prepregnancy very rare allergic) substance use type: does not use Objective Labs Result Diagrams: 08/07/21 15:11 08/07/21 15:11 Labs: Laboratory Results - last 24 hr 08/07/21 08/07/21 08/07/21 15:11 15:11 15:20 WBC 16.3 H RBC 3.80 L Hgb 11.2 L Hct 33.5 L MCV 88.0 MCH 29.5 MCHC 33.5 RDW 13.8 Plt Count 263 Neut % (Auto) 78.2 H Lymph % (Auto) 15.6 L [place] % (Auto) 5.5 Eos % (Auto) 0.4 L Baso % (Auto) 0.3 Neut # (Auto) 40837 H Lymph # (Auto) 2500 [place] # (Auto) 900 Eos # (Auto) 100 Baso # (Auto) 0 Sodium 136 L Potassium 3.8 Chloride 107 Carbon Dioxide 19 L BUN 8 Creatinine 0.54 Estimated GFR > 60.0 BUN/Creatinine Ratio 14.8 Glucose 81 Uric Acid 5.7 Calcium 8.6 Total Bilirubin 0.4 AST 20 ALT 12 Alkaline Phosphatase 141 H Total Protein 7.3 Albumin 3.5 Globulin 3.8 Albumin/Globulin Ratio 0.9 L U Random Total Protein 6 Urine Creatinine 86.8 Protein/Creatinin Ratio 0.06
== END 2021-08-07 15:15 | disposition home or self-care (01) ==
LOC: LABOR 14:36 → OB 08-11 15:13
PROVIDERS: Referring Provider Obstetrics & Gynecology; Visit Provider Obstetrics & Gynecology
DX: O13.3 Gestational [pregnancy-induced] hypertension without significant proteinuria, third trimester (principal); Z3A.33 33 weeks gestation of pregnancy
CPT/HCPCS: 36415; 59025; 80053; 82570; 84156; 84550; 85025; G0378; G0379

== ENCOUNTER 2021-08-09 10:47 | Observation (INO) | payer OTHER, SELFPAY | END 2021-08-09 12:10 | disposition home or self-care (01) | PROVIDERS: Admitting Provider Obstetrics & Gynecology; Referring Provider Obstetrics & Gynecology; Visit Provider Obstetrics & Gynecology | DX: Z03.71 Encounter for suspected problem with amniotic cavity and membrane ruled out (principal); Z3A.33 33 weeks gestation of pregnancy | CPT/HCPCS: 59025; 59050; G0378; G0379 ==

== ENCOUNTER 2021-08-11 10:09 | Outpatient (CLI) | payer OTHER, SELFPAY ==
[2021-08-11 11:07] LABS: Add Manual Diff / Slide Review NO; Basophils Absolute Auto 0 /uL (0-100); Basophils Percent Auto 0.3 % (0-2); Eosinophils Absolute Auto 100 /uL (0-450); Eosinophils Percent Auto 0.7 % (2-4); Hematocrit 35.1 % (36-46); Hemoglobin 11.6 g/dL (12.0-16.0); Lymphocytes Absolute Auto 2700 /uL (1100-4500); Lymphocytes Percent Auto 15.1 % (25-40); Mean Corpuscular HGB Conc 32.9 % (30-36); Mean Corpuscular Hemoglobin 29.3 PG (26-34); Mean Corpuscular Volume 89.1 fL (80-100); Monocytes Absolute Auto 1300 /uL (0-900); Monocytes Percent Auto 7.4 % (3-14); Neutrophils Absolute Auto 13800 /uL (1500-7000); Neutrophils Percent Auto 76.5 % (50-75); Platelet Count 285 X10^3/uL (150-400); Red Blood Cell Count 3.94 X10^6/uL (4.0-5.2)
[2021-08-11 11:28] LABS: Alanine Aminotransferase 18 IU/L (<35); Albumin 3.8 g/dL (3.5-5.0); Albumin Globulin Ratio 0.9 (1.0-2.8); Alkaline Phosphatase 157 U/L (38-126); Aspartate Aminotransferase 25 IU/L (14-36); BUN Creatinine Ratio 10.3 (6-22); Bilirubin Total 0.3 mg/dL (0.2-1.3); Blood Urea Nitrogen 6 mg/dL (7-17); Calcium 8.9 mg/dL (8.4-10.2); Carbon Dioxide 22 mmol/L (22-32); Chloride 104 mmol/L (98-107); Estimated Glomerular Filt Rate > 60.0 mL/min (>60); Globulin 4.1 g/dL (1.7-4.1); Glucose 80 mg/dL (70-100); HEMOLYSIS < 15 (0-50); Potassium 4.1 mmol/L (3.4-5.1); Sodium 135 mmol/L (137-145); Total Protein 7.9 g/dL (6.3-8.2)
[2021-08-11 12:01] LABS: Protein (Total) Urine Random 7 mg/dL (0-12); Protein Creatinine Ratio Urine 0.07 GRAM/24H
== END 2021-08-11 10:56 | disposition home or self-care (01) ==
LOC: OB 15:16
PROVIDERS: Referring Provider Obstetrics & Gynecology; Visit Provider Obstetrics & Gynecology
DX: O13.3 Gestational [pregnancy-induced] hypertension without significant proteinuria, third trimester (principal); Z3A.34 34 weeks gestation of pregnancy
CPT/HCPCS: 36415; 59025; 80053; 82570; 84156; 84550; 85025; G0378; G0379

== ENCOUNTER 2021-08-18 14:50 | Outpatient (CLI) | payer OTHER, SELFPAY ==
[2021-08-18 16:07] LABS: Add Manual Diff / Slide Review NO; Basophils Absolute Auto 0 /uL (0-100); Basophils Percent Auto 0.3 % (0-2); Eosinophils Absolute Auto 100 /uL (0-450); Eosinophils Percent Auto 0.8 % (2-4); Hematocrit 33.1 % (36-46); Hemoglobin 11.1 g/dL (12.0-16.0); Lymphocytes Absolute Auto 2400 /uL (1100-4500); Lymphocytes Percent Auto 15.4 % (25-40); Mean Corpuscular HGB Conc 33.6 % (30-36); Mean Corpuscular Hemoglobin 29.1 PG (26-34); Mean Corpuscular Volume 86.4 fL (80-100); Monocytes Absolute Auto 1000 /uL (0-900); Monocytes Percent Auto 6.3 % (3-14); Neutrophils Absolute Auto 11900 /uL (1500-7000); Neutrophils Percent Auto 77.2 % (50-75); Platelet Count 292 X10^3/uL (150-400); Red Blood Cell Count 3.83 X10^6/uL (4.0-5.2); Red Cell Distribution Width 14.1 % (11.6-14.8); White Blood Cell Count 15.4 X10^3/uL (4.5-11.0)
[2021-08-18 16:38] LABS: Uric Acid 5.1 mg/dL (2.5-6.2)
[2021-08-18 16:49] LABS: Alanine Aminotransferase 18 IU/L (<35); Albumin 3.4 g/dL (3.5-5.0); Albumin Globulin Ratio 0.9 (1.0-2.8); Alkaline Phosphatase 144 U/L (38-126); Aspartate Aminotransferase 23 IU/L (14-36); BUN Creatinine Ratio 16.1 (6-22); Bilirubin Total 0.4 mg/dL (0.2-1.3); Blood Urea Nitrogen 10 mg/dL (7-17); Calcium 8.7 mg/dL (8.4-10.2); Carbon Dioxide 22 mmol/L (22-32); Chloride 106 mmol/L (98-107); Estimated Glomerular Filt Rate > 60 mL/min (>60); Globulin 3.7 g/dL (1.7-4.1); Glucose 107 mg/dL (70-100); HEMOLYSIS < 15 (0-50); Potassium 3.7 mmol/L (3.4-5.1); Sodium 136 mmol/L (137-145); Total Protein 7.1 g/dL (6.3-8.2)
[2021-08-18 19:59] LABS: Creatinine Urine Random 88.8 mg/dL; Protein (Total) Urine Random 11 mg/dL (0-12); Protein Creatinine Ratio Urine 0.12 GRAM/24H
== END 2021-08-18 16:16 | disposition home or self-care (01) ==
LOC: LABOR 15:00 → OB 08-20 07:26
PROVIDERS: Referring Provider Obstetrics & Gynecology; Visit Provider Obstetrics & Gynecology
DX: O13.3 Gestational [pregnancy-induced] hypertension without significant proteinuria, third trimester (principal); Z3A.35 35 weeks gestation of pregnancy; Z34.03 Encounter for supervision of normal first pregnancy, third trimester
CPT/HCPCS: 36415; 59025; 80053; 82570; 84156; 84550; 85025; 87086; G0378; G0379

== ENCOUNTER → 2021-08-18 15:04 | Outpatient (CLI) | payer OTHER, SELFPAY | PROVIDERS: Visit Provider Obstetrics & Gynecology | DX: Z34.03 Encounter for supervision of normal first pregnancy, third trimester (principal); Z3A.35 35 weeks gestation of pregnancy | CPT/HCPCS: 87086 ==

== ENCOUNTER 2021-08-25 11:23 | Observation (INO) | payer OTHER, SELFPAY ==
[2021-08-25 12:03] LABS: Add Manual Diff / Slide Review NO; Basophils Absolute Auto 0 /uL (0-100); Basophils Percent Auto 0.2 % (0-2); Eosinophils Absolute Auto 100 /uL (0-450); Eosinophils Percent Auto 0.6 % (2-4); Hematocrit 34.9 % (36-46); Hemoglobin 11.8 g/dL (12.0-16.0); Lymphocytes Absolute Auto 3000 /uL (1100-4500); Lymphocytes Percent Auto 19.3 % (25-40); Mean Corpuscular HGB Conc 33.9 % (30-36); Mean Corpuscular Hemoglobin 29.4 PG (26-34); Mean Corpuscular Volume 86.8 fL (80-100); Monocytes Absolute Auto 1100 /uL (0-900); Monocytes Percent Auto 7.3 % (3-14); Neutrophils Absolute Auto 11100 /uL (1500-7000); Neutrophils Percent Auto 72.6 % (50-75); Platelet Count 268 X10^3/uL (150-400); Red Blood Cell Count 4.03 X10^6/uL (4.0-5.2); Red Cell Distribution Width 14.1 % (11.6-14.8); White Blood Cell Count 15.4 X10^3/uL (4.5-11.0)
[2021-08-25 12:26] LABS: Aspartate Aminotransferase 26 IU/L (14-36); BUN Creatinine Ratio 11.7 (6-22); Blood Urea Nitrogen 7 mg/dL (7-17); Estimated Glomerular Filt Rate > 60 mL/min (>60); Uric Acid 6.6 mg/dL (2.5-6.2)
[2021-08-25 13:16] LABS: Alanine Aminotransferase 16 IU/L (<35); Albumin 3.4 g/dL (3.5-5.0); Albumin Globulin Ratio 0.9 (1.0-2.8); Alkaline Phosphatase 163 U/L (38-126); Aspartate Aminotransferase 24 IU/L (14-36); BUN Creatinine Ratio 11.3 (6-22); Bilirubin Total 0.3 mg/dL (0.2-1.3); Blood Urea Nitrogen 7 mg/dL (7-17); Calcium 8.7 mg/dL (8.4-10.2); Carbon Dioxide 19 mmol/L (22-32); Chloride 112 mmol/L (98-107); Estimated Glomerular Filt Rate > 60 mL/min (>60); Globulin 3.7 g/dL (1.7-4.1); Glucose 87 mg/dL (70-100); HEMOLYSIS < 15 (0-50); Potassium 3.9 mmol/L (3.4-5.1); Sodium 139 mmol/L (137-145); Total Protein 7.1 g/dL (6.3-8.2)
[2021-08-25 13:46] LABS: Creatinine Urine Random 150.8 mg/dL; Protein (Total) Urine Random 10 mg/dL (0-12); Protein Creatinine Ratio Urine 0.06 GRAM/24H
== END 2021-08-25 12:15 | disposition home or self-care (01) ==
PROVIDERS: Admitting Provider Obstetrics & Gynecology; Referring Provider Obstetrics & Gynecology; Visit Provider Obstetrics & Gynecology
DX: O13.3 Gestational [pregnancy-induced] hypertension without significant proteinuria, third trimester (principal); O47.03 False labor before 37 completed weeks of gestation, third trimester; Z3A.36 36 weeks gestation of pregnancy; Z34.03 Encounter for supervision of normal first pregnancy, third trimester
CPT/HCPCS: 36415; 59025; 80053; 82570; 84156; 84450; 84550; 85025; 87653; G0378; G0379

== ENCOUNTER → 2021-08-25 11:54 | Outpatient (CLI) | payer OTHER, SELFPAY ==
[2021-08-26 07:50] LABS: Strep Grp B PCR NEG for Grp B Strep
== END ==
PROVIDERS: Visit Provider Obstetrics & Gynecology
DX: Z34.03 Encounter for supervision of normal first pregnancy, third trimester (principal); Z3A.36 36 weeks gestation of pregnancy
CPT/HCPCS: 87653

== ENCOUNTER 2021-08-30 22:34 | Outpatient (CLI) | payer OTHER, SELFPAY ==
[2021-08-30 23:33] LABS: Add Manual Diff / Slide Review NO; Basophils Absolute Auto 100 /uL (0-100); Basophils Percent Auto 0.3 % (0-2); Eosinophils Absolute Auto 100 /uL (0-450); Eosinophils Percent Auto 0.9 % (2-4); Hematocrit 35.6 % (36-46); Lymphocytes Absolute Auto 3400 /uL (1100-4500); Lymphocytes Percent Auto 20.8 % (25-40); Mean Corpuscular HGB Conc 33.7 % (30-36); Mean Corpuscular Hemoglobin 29.2 PG (26-34); Mean Corpuscular Volume 86.6 fL (80-100); Monocytes Absolute Auto 1200 /uL (0-900); Monocytes Percent Auto 7.3 % (3-14); Neutrophils Absolute Auto 11500 /uL (1500-7000); Neutrophils Percent Auto 70.7 % (50-75); Platelet Count 264 X10^3/uL (150-400); Red Blood Cell Count 4.11 X10^6/uL (4.0-5.2); Red Cell Distribution Width 13.8 % (11.6-14.8); White Blood Cell Count 16.3 X10^3/uL (4.5-11.0)
[2021-08-30 23:41] LABS: Alanine Aminotransferase 12 IU/L (<35); Albumin 3.2 g/dL (3.5-5.0); Albumin Globulin Ratio 0.8 (1.0-2.8); Alkaline Phosphatase 175 U/L (38-126); Aspartate Aminotransferase 21 IU/L (14-36); BUN Creatinine Ratio 15.4 (6-22); Bilirubin Total 0.3 mg/dL (0.2-1.3); Blood Urea Nitrogen 10 mg/dL (7-17); Calcium 8.4 mg/dL (8.4-10.2); Carbon Dioxide 23 mmol/L (22-32); Chloride 108 mmol/L (98-107); Estimated Glomerular Filt Rate > 60 mL/min (>60); Globulin 3.8 g/dL (1.7-4.1); Glucose 88 mg/dL (70-100); HEMOLYSIS < 15 (0-50); Potassium 4.4 mmol/L (3.4-5.1); Sodium 136 mmol/L (137-145); Uric Acid 5.9 mg/dL (2.5-6.2)
[2021-08-31 16:20] LABS: Creatinine Urine Random 24.4 mg/dL; Protein (Total) Urine Random 15 mg/dL (0-12); Protein Creatinine Ratio Urine 0.61 GRAM/24H
== END 2021-08-31 00:41 | disposition home or self-care (01) ==
LOC: OB 09-01 06:37
PROVIDERS: PCP Obstetrics & Gynecology; Referring Provider Obstetrics & Gynecology; Visit Provider Obstetrics & Gynecology
DX: O13.3 Gestational [pregnancy-induced] hypertension without significant proteinuria, third trimester (principal); O47.03 False labor before 37 completed weeks of gestation, third trimester; Z3A.36 36 weeks gestation of pregnancy
CPT/HCPCS: 36415; 59025; 59050; 80053; 82570; 84156; 84550; 85025; G0378; G0379

== ENCOUNTER → 2021-09-01 11:47 | Outpatient (CLI) | payer OTHER, SELFPAY ==
[2021-09-01 12:36] LABS: Creatinine Urine Random 134.6 mg/dL; Protein (Total) Urine Random 15 mg/dL (0-12); Protein Creatinine Ratio Urine 0.11 GRAM/24H
== END ==
PROVIDERS: PCP Obstetrics & Gynecology; Visit Provider Obstetrics & Gynecology
DX: O16.3 Unspecified maternal hypertension, third trimester (principal)
CPT/HCPCS: 82570; 84156

== ENCOUNTER 2021-09-01 12:36 | Outpatient (CLI) | payer OTHER, SELFPAY ==
[2021-09-01 13:45] LABS: Add Manual Diff / Slide Review NO; Basophils Absolute Auto 0 /uL (0-100); Basophils Percent Auto 0.3 % (0-2); Eosinophils Absolute Auto 100 /uL (0-450); Eosinophils Percent Auto 0.4 % (2-4); Hematocrit 37.3 % (36-46); Hemoglobin 12.5 g/dL (12.0-16.0); Lymphocytes Absolute Auto 2500 /uL (1100-4500); Lymphocytes Percent Auto 15.8 % (25-40); Mean Corpuscular HGB Conc 33.5 % (30-36); Mean Corpuscular Hemoglobin 29.2 PG (26-34); Mean Corpuscular Volume 87.1 fL (80-100); Monocytes Absolute Auto 1000 /uL (0-900); Monocytes Percent Auto 6.2 % (3-14); Neutrophils Absolute Auto 12200 /uL (1500-7000); Neutrophils Percent Auto 77.3 % (50-75); Platelet Count 263 X10^3/uL (150-400); Red Blood Cell Count 4.29 X10^6/uL (4.0-5.2); Red Cell Distribution Width 14.1 % (11.6-14.8); White Blood Cell Count 15.8 X10^3/uL (4.5-11.0)
--- NOTE | 2021-09-01 13:48 | P.TNLD_ITS ---
Visit Information Visit Information Date of evaluation: 09/01/21 Primary OB Provider: Buster Gomez Reason for Evaluation: Yes non-stress test Comments/Additional reasons for admission: Gestational hypertension, currently on 300 mg labetalol b.i.d. Vital Signs Vital Signs: 119/69, 112/67/ 118/71 [facility] Medical History ADHD (~1996) Asthma Degenerative disc disease (~2010) Depression Osteoarthritis (~2010) Scoliosis (~2010) Surgical History [place] teeth removed (~2018) Family History Mother Hypertension Hyperlipidemia Diabetes mellitus Depression TIA (transient ischemic attack) Father Rheumatoid arthritis Shingles Grandmother Diabetes mellitus TIA (transient ischemic attack) Cancer Grandfather Cancer Grandmother Unknown family medical history Grandfather Unknown family medical history Social History marital status: unmarried,living together household members: significant other lives independently: Yes caregiver/support person: No pets and animals: Yes (3 cats, 11 rabits, rescues cats and rabbits) occupational status: employed current occupational exposures/hazards: Yes (high stress enviornment) Previous occupational history: [employer] jaziel/episcopal: None special jaziel needs: No travel history: recent (drove to [facility]) Smoking Status: Never smoker alcohol intake: former (prepregnancy very rare allergic) substance use type: does not use Review of Systems Review of Systems Narrative: Problem-specific ROS positives included with HPI Objective Labs Result Diagrams: 09/01/21 13:30 09/01/21 13:30 Labs: Laboratory Results - last 24 hr 09/01/21 13:30 WBC 15.8 H RBC 4.29 Hgb 12.5 Hct 37.3 MCV 87.1 MCH 29.2 MCHC 33.5 RDW 14.1 Plt Count 263 Neut % (Auto) 77.3 H Lymph % (Auto) 15.8 L [place] % (Auto) 6.2 Eos % (Auto) 0.4 L Baso % (Auto) 0.3 Neut # (Auto) 31527 H Lymph # (Auto) 2500 [place] # (Auto) 1000 H Eos # (Auto) 100 Baso # (Auto) 0 Evaluation Evaluation Baseline heart rate: 125 Variability: Moderate (11-25) monitor accelerations: Present Monitor Decelerations: Absent Status: Category l Cervical dilation (cm): 0 Cervical effacement (%): 50 station: -2 Diagnosis, Plan/Disposition Final Diagnosis (1) Hypertension affecting in third trimester: Status: Acute (2) : Status: Acute Plan/Disposition Plan: NST is reactive and PIH/preeclampsia labs are all normal. Will continue monitoring blood pressures at home and re-evaluate weekly with plan for delivery between 38+0 and 39+0 unless earlier delivery indicated. OB Disposition: home
[2021-09-01 15:32] LABS: Alanine Aminotransferase 13 IU/L (<35); Albumin 3.5 g/dL (3.5-5.0); Albumin Globulin Ratio 0.9 (1.0-2.8); Alkaline Phosphatase 189 U/L (38-126); Aspartate Aminotransferase 24 IU/L (14-36); BUN Creatinine Ratio 16.4 (6-22); Bilirubin Total 0.4 mg/dL (0.2-1.3); Blood Urea Nitrogen 12 mg/dL (7-17); Calcium 8.7 mg/dL (8.4-10.2); Carbon Dioxide 20 mmol/L (22-32); Chloride 109 mmol/L (98-107); Estimated Glomerular Filt Rate > 60 mL/min (>60); Globulin 3.9 g/dL (1.7-4.1); Glucose 77 mg/dL (70-100); HEMOLYSIS < 15 (0-50); Potassium 4.1 mmol/L (3.4-5.1); Sodium 137 mmol/L (137-145); Total Protein 7.4 g/dL (6.3-8.2); Uric Acid 7.3 mg/dL (2.5-6.2)
== END 2021-09-01 13:51 | disposition home or self-care (01) ==
LOC: LABOR 13:51 → OB 09-03 07:33
PROVIDERS: PCP Obstetrics & Gynecology; Referring Provider Obstetrics & Gynecology; Visit Provider Obstetrics & Gynecology
DX: O13.3 Gestational [pregnancy-induced] hypertension without significant proteinuria, third trimester (principal); Z3A.37 37 weeks gestation of pregnancy
CPT/HCPCS: 36415; 59025; 80053; 82570; 84156; 84550; 85025; G0378; G0379

== ENCOUNTER 2021-09-08 11:21 | Outpatient (CLI) | payer OTHER, SELFPAY ==
[2021-09-08 12:17] LABS: Add Manual Diff / Slide Review NO; Basophils Absolute Auto 100 /uL (0-100); Basophils Percent Auto 0.7 % (0-2); Eosinophils Absolute Auto 100 /uL (0-450); Eosinophils Percent Auto 0.6 % (2-4); Hematocrit 37.4 % (36-46); Hemoglobin 12.6 g/dL (12.0-16.0); Lymphocytes Absolute Auto 2700 /uL (1100-4500); Lymphocytes Percent Auto 19.5 % (25-40); Mean Corpuscular HGB Conc 33.6 % (30-36); Mean Corpuscular Hemoglobin 29.1 PG (26-34); Mean Corpuscular Volume 86.7 fL (80-100); Monocytes Absolute Auto 900 /uL (0-900); Monocytes Percent Auto 6.5 % (3-14); Neutrophils Absolute Auto 10200 /uL (1500-7000); Neutrophils Percent Auto 72.7 % (50-75); Platelet Count 264 X10^3/uL (150-400); Red Blood Cell Count 4.32 X10^6/uL (4.0-5.2); Red Cell Distribution Width 14.3 % (11.6-14.8)
[2021-09-08 12:25] LABS: Alanine Aminotransferase 12 IU/L (<35); Albumin 3.5 g/dL (3.5-5.0); Albumin Globulin Ratio 0.9 (1.0-2.8); Alkaline Phosphatase 196 U/L (38-126); Aspartate Aminotransferase 29 IU/L (14-36); BUN Creatinine Ratio 14.5 (6-22); Bilirubin Total 0.4 mg/dL (0.2-1.3); Blood Urea Nitrogen 10 mg/dL (7-17); Calcium 8.8 mg/dL (8.4-10.2); Carbon Dioxide 23 mmol/L (22-32); Chloride 108 mmol/L (98-107); Estimated Glomerular Filt Rate > 60 mL/min (>60); Glucose 80 mg/dL (70-100); HEMOLYSIS < 15 (0-50); Potassium 4.4 mmol/L (3.4-5.1); Sodium 136 mmol/L (137-145); Total Protein 7.5 g/dL (6.3-8.2); Uric Acid 7.5 mg/dL (2.5-6.2)
[2021-09-08 13:04] LABS: Creatinine Urine Random 93.1 mg/dL; Protein (Total) Urine Random 27 mg/dL (0-12); Protein Creatinine Ratio Urine 0.29 GRAM/24H
--- NOTE | 2021-09-08 13:21 | PM.OBTRLD ---
Visit Information Visit Information Date of evaluation: 09/08/21 Primary OB Provider: Buster Gomez Reason for Evaluation: Yes non-stress test Comments/Additional reasons for admission: Gestational hypertension, controlled with labetalol 300 mg p.o. b.i.d. for nonstress test, PIH/preeclampsia labs, JEWEL. Vital Signs Vital Signs: 144/76, 121/74, 138/80 [facility] Medical History ADHD (~1996) Asthma Degenerative disc disease (~2010) Depression Osteoarthritis (~2010) Scoliosis (~2010) Surgical History [place] teeth removed (~2018) Family History Mother Hypertension Hyperlipidemia Diabetes mellitus Depression TIA (transient ischemic attack) Father Rheumatoid arthritis Shingles Grandmother Diabetes mellitus TIA (transient ischemic attack) Cancer Grandfather Cancer Grandmother Unknown family medical history Grandfather Unknown family medical history Social History marital status: unmarried,living together household members: significant other lives independently: Yes caregiver/support person: No pets and animals: Yes (3 cats, 11 rabits, rescues cats and rabbits) occupational status: employed current occupational exposures/hazards: Yes (high stress enviornment) Previous occupational history: [employer] jaziel/rastafarian: None special jaziel needs: No travel history: recent (drove to [facility]) Smoking Status: Never smoker alcohol intake: former (prepregnancy very rare allergic) substance use type: does not use Review of Systems Review of Systems Narrative: Problem-specific ROS positives included in HPI Exam Const General: cooperative, comfortable and well developed Nutritional Appearance: average body habitus Orientation: alert and oriented x3 HENMT Head: normal to inspection Ears: hearing grossly normal bilaterally Face and sinus: face symmetric Eyes General: appearance normal, both eyes and all related structures Conjunctivae: conjunctivae normal Sclera: sclerae normal EOM: EOM intact bilaterally Neck Neck: normal visual inspection Resp Effort & Inspection: normal respiratory effort and able to speak in complete sentences Uterus Location (Fundal Height): 36 Presentation: vertex Estimated Weight (lbs): 8 Psych Appearance: grossly normal Mental Status: mental status grossly normal Speech and Movement: speech and movement normal Mood: congruent mood Affect: normal affect Attitude: cooperative Thought Process: normal Thought Content: normal Judgment: judgment good Objective Labs Result Diagrams: 09/08/21 12:00 09/08/21 12:00 Labs: Laboratory Results - last 24 hr 09/08/21 09/08/21 09/08/21 12:00 12:00 12:30 WBC 14.0 H RBC 4.32 Hgb 12.6 Hct 37.4 MCV 86.7 MCH 29.1 MCHC 33.6 RDW 14.3 Plt Count 264 Neut % (Auto) 72.7 Lymph % (Auto) 19.5 L [place] % (Auto) 6.5 Eos % (Auto) 0.6 L Baso % (Auto) 0.7 Neut # (Auto) 57292 H Lymph # (Auto) 2700 [place] # (Auto) 900 Eos # (Auto) 100 Baso # (Auto) 100 Sodium 136 L Potassium 4.4 Chloride 108 H Carbon Dioxide 23 BUN 10 Creatinine 0.69 Estimated GFR > 60 BUN/Creatinine Ratio 14.5 Glucose 80 Uric Acid 7.5 H Calcium 8.8 Total Bilirubin 0.4 AST 29 ALT 12 Alkaline Phosphatase 196 H Total Protein 7.5 Albumin 3.5 Globulin 4.0 Albumin/Globulin Ratio 0.9 L U Random Total Protein 27 H Urine Creatinine 93.1 Protein/Creatinin Ratio 0.29 Evaluation Evaluation Baseline heart rate: 135 Variability: Moderate (11-25) monitor accelerations: Present Monitor Decelerations: Absent Contraction Frequency (minutes): 5 Uterine Contraction Intensity: Mild Category of Tracing: Reactive Status: Category l Cervical dilation (cm): 0 Cervical effacement (%): 75 station: -2 Diagnosis, Plan/Disposition Final Diagnosis (1) Hypertension affecting in third trimester: Status: Acute (2) : Status: Acute Plan/Disposition Plan: Bedside ultrasound for JEWEL equals 8.2 cm Patient will return for ripening on the evening of 09/09/2021 and attention on the morning of 09/10/2021. OB Disposition: home
== END 2021-09-08 12:45 | disposition home or self-care (01) ==
LOC: OB 09-10 07:43
PROVIDERS: Referring Provider Obstetrics & Gynecology; Visit Provider Obstetrics & Gynecology
DX: O13.3 Gestational [pregnancy-induced] hypertension without significant proteinuria, third trimester (principal); Z3A.38 38 weeks gestation of pregnancy
CPT/HCPCS: 59025; 76815; 80053; 82570; 84156; 84550; 85025; G0378; G0379

== ENCOUNTER 2021-09-09 18:45 | Inpatient (IN) | payer OTHER, SELFPAY ==
--- NOTE | 2021-09-09 19:35 | P.HPOB_ITS ---
OB HPI Date/Time Date of admission: 09/09/21 Date Patient Seen: 09/09/21 Time Patient Seen: 19:35 History of Present Condition Chief complaint: OBS : 1 Para: 0 Estimated Date of Delivery: 09/21/21 Estimated Gestational Age (weeks): 38+2 Narrative: Mayda Najera is a 31 year old primigravida admitted at 38+ 2 weeks gestational age with gestational hypertension starting in the 3rd trimester which has required labetalol 300 mg p.o. b.i.d. to control her blood pressures in the mildly hypertensive range. Serial PIH/preeclampsia labs have been negative and weekly NSTs have been reassuring. Her most recent growth ultrasound on 08/05/2021 shows the to be at the 55th percentile insofar as EFW. GBS is negative. Indications Indication for induction OB: gestational HTN/pre-eclampsia History of Present care: good care Dating criteria: LMP confirmed by 1st trimester US Ultrasounds: normal 1st trimester US and normal mid trimester US Obstetrical complications: gestational hypertension Medical complications: none Preadmission Labs Blood type: O (+) positive -: Antibody screen: negative, GBS status: negative, HBsAG: negative, HIV: negative and RPR/VDLR: negative -: Chlamydia screen: not detected and Gonorrhea screen: not detected -: Rubella: not immune and Varicella: not immune HCT: 37.4 HCAB: negative PAP: Normal 1 hr GTT: 116 Evaluation Evaluation Baseline heart rate: 130 Variability: Moderate (11-25) monitor accelerations: Present Monitor Decelerations: Absent Contraction Frequency (minutes): 7 Uterine Contraction Intensity: Mild Category of Tracing: Reactive Dilation (cm): 1 Effacement (%): 75 Dilation: Closed Effacement: 60-70% station: -2 Position of cervix: mid Consistency: soft Ortiz score: 6 PFSH Medical History ADHD (~1996) Asthma Degenerative disc disease (~2010) Depression Osteoarthritis (~2010) Scoliosis (~2010) Surgical History [place] teeth removed (~2018) Family History Mother Hypertension Hyperlipidemia Diabetes mellitus Depression TIA (transient ischemic attack) Father Rheumatoid arthritis Shingles Grandmother Diabetes mellitus TIA (transient ischemic attack) Cancer Grandfather Cancer Grandmother Unknown family medical history Grandfather Unknown family medical history Social History marital status: unmarried,living together household members: significant other lives independently: Yes caregiver/support person: No pets and animals: Yes (3 cats, 11 rabits, rescues cats and rabbits) occupational status: employed current occupational exposures/hazards: Yes (high stress enviornment) Previous occupational history: [email or web address] jaziel/faith: None special jaziel needs: No travel history: recent (drove to [facility]) Smoking Status: Never smoker alcohol intake: former (prepregnancy very rare allergic) substance use type: does not use Meds Home Medications and Allergies Home Medications Medication Instructions Recorded Confirmed Type albuterol sulfate 90 mcg/actuation 1 inh INHALATION Q4-6H PRN 02/11/21 08/30/21 History breath activated powder inhaler prenat.vits,bentley,sba-cbdv-giyow 1 tab PO DAILY 02/11/21 08/30/21 History ondansetron 4 mg disintegrating 4 mg PO Q6-8H PRN #20 tab 04/01/21 08/30/21 Rx tablet labetalol 200 mg tablet 400 mg PO BID #60 tab 08/05/21 08/30/21 Rx Allergies Allergy/AdvReac Type Severity Reaction Status Date / Time No Known Drug Allergies Allergy Verified 08/25/21 10:25 Review of Systems Review of Systems Narrative: Problem-specific ROS positives included with the HPI OB Exam HENMD Head: normal to inspection, atraumatic and abrasion Eyes General: appearance normal, both eyes and all related structures Resp Effort & Inspection: normal respiratory effort and able to speak in complete sentences Auscultation: clear to auscultation bilaterally Cardio Rate: regular rate Rhythm: regular rhythm Heart Sounds: S1 normal and S2 normal Extremities Lower extremity: Yes normal to inspection; No edema Uterus Location (Fundal Height): 38 Presentation: vertex Estimated Weight (lbs): 8 Objective Labs Result Diagrams: 09/09/21 20:25 09/09/21 21:15 Assessment and Plan Assessment and Plan Assessment and Plan narrative: ASSESSMENT 1. Intrauterine gestation, Mustafa, vertex, 30+ 2 weeks gestational age 2. Gestational hypertension without severe features 3. GBS negative status PLAN 1. Admit for cervical ripening/induction 2. Continue labetalol p.o. in labor with IV labetalol as needed severe range blood pressures 3. PIH/preeclampsia labs 4. See orders
[2021-09-09 20:49] LABS: Add Manual Diff / Slide Review NO; Basophils Absolute Auto 100 /uL (0-100); Basophils Percent Auto 0.7 % (0-2); Eosinophils Absolute Auto 100 /uL (0-450); Eosinophils Percent Auto 0.5 % (2-4); Hematocrit 35.9 % (36-46); Hemoglobin 12.1 g/dL (12.0-16.0); Lymphocytes Absolute Auto 3100 /uL (1100-4500); Lymphocytes Percent Auto 19.1 % (25-40); Mean Corpuscular HGB Conc 33.8 % (30-36); Mean Corpuscular Hemoglobin 29.1 PG (26-34); Mean Corpuscular Volume 86.3 fL (80-100); Monocytes Absolute Auto 1100 /uL (0-900); Monocytes Percent Auto 6.9 % (3-14); Neutrophils Absolute Auto 12000 /uL (1500-7000); Neutrophils Percent Auto 72.8 % (50-75); Platelet Count 263 X10^3/uL (150-400); Red Blood Cell Count 4.16 X10^6/uL (4.0-5.2); Red Cell Distribution Width 14.1 % (11.6-14.8); White Blood Cell Count 16.4 X10^3/uL (4.5-11.0)
[2021-09-09 21:00] LABS: COVID19 -Nasal RAPID Negative (Negative)
[2021-09-09 21:21] VITALS: BP 133/88
[2021-09-09 21:28] VITALS: BP 142/84; PULSE 70
[2021-09-09] MEDS: LABETALOL 100 MG TABLET 200 MG PO (21:28)
[2021-09-09 21:32] LABS: Aspartate Aminotransferase 21 IU/L (14-36); BUN Creatinine Ratio 13.2 (6-22); Blood Urea Nitrogen 10 mg/dL (7-17); Estimated Glomerular Filt Rate > 60 mL/min (>60)
[2021-09-09] MEDS: miSOPROStoL 25 MCG TABLET 50 MCG PO (21:33)
[2021-09-10] VITALS: BP 138/77; PULSE 78
[2021-09-10] MEDS: miSOPROStoL 25 MCG TABLET 50 MCG PO (03:40)
--- NOTE | 2021-09-10 08:13 | PM.OBPNLAB ---
Date/Time Date Patient Seen: 09/10/21 Time Patient Seen: 09:15 Pain Control Pain control: tolerating well Pelvic Exam Dilation (cm): 1 Effacement (%): 75 station: -2 Amniotic membrane status: Intact Contractions Contractions on admission: none Monitor mode: External Contraction pattern: Irregular Contraction phase: Resting Contraction intensity: Mild Status status: Category l Heart Rate Baseline: 135 Monitor Accelerations: Present Monitor Decelerations: Absent Monitor Variability: Moderate Assessment and Plan Assessment: induction ongoing Plan: begin patient augmentation Comments: Cervix slightly more favorable after two doses of Cytotec and will start Pitocin augmentation.
[2021-09-10 08:32] VITALS: BP 157/82; PULSE 60
[2021-09-10] MEDS: LABETALOL 100 MG TABLET 200 MG PO ×3 (08:32→20:55)
[2021-09-10] MEDS: LACTATED RINGERS 1,000 ML 100 ML IV (09:50)
[2021-09-10] MEDS: OXYTOCIN PREMIX 30 UNIT/500 ML PLAST..BAG IV (09:50)
[2021-09-10 15:50] VITALS: BP 151/67; PULSE 64
[2021-09-10 20:55] VITALS: BP 164/70; PULSE 67
[2021-09-10] MEDS: ZOLPIDEM 5 MG TABLET PO (20:55)
[2021-09-10] MEDS: DINOPROSTONE VAG (CERVIDIL) 10 MG VAG (20:55)
--- NOTE | 2021-09-10 20:59 | PM.OBPNLAB ---
Date/Time Date Patient Seen: 09/10/21 Time Patient Seen: 17:10 Pain Control Pain control: tolerating well Pelvic Exam Dilation (cm): 2 Effacement (%): 50 station: -2 Amniotic membrane status: Intact Contractions Monitor mode: External Contraction pattern: Irregular Contraction phase: Resting Contraction intensity: Mild Status status: Category l Heart Rate Baseline: 125 Monitor Accelerations: Present Monitor Decelerations: Absent Monitor Variability: Moderate Assessment and Plan Assessment: induction ongoing Comments: Will stop Pitocin overnight and place Cervidil with plans to reassess in the AM.
[2021-09-11] VITALS (11 sets, daily range): BP systolic 82–186; BP diastolic 31–79; PULSE 54–83; RESP 11–12; TEMP 36.5; O2SAT 97–98
[2021-09-11] MEDS: LACTATED RINGERS 1,000 ML 100 ML IV ×4 (02:50→22:23)
[2021-09-11] MEDS: LABETALOL 100 MG TABLET 200 MG PO ×2 (09:56→15:27)
--- NOTE | 2021-09-11 10:03 | PM.OBPNLAB ---
Date/Time Date Patient Seen: 09/11/21 Time Patient Seen: 09:50 Pain Control Pain control: tolerating well Pelvic Exam Dilation (cm): 2 Effacement (%): 80 station: -2 Amniotic membrane status: Intact Contractions Contractions on admission: none Monitor mode: External Contraction pattern: Irregular Contraction phase: Resting Contraction intensity: Mild Status status: Category l Heart Rate Baseline: 125 Monitor Accelerations: Present Monitor Decelerations: Absent Monitor Variability: Moderate Assessment and Plan Assessment: induction ongoing Comments: Unable to place martin cath due to very posterior cervix location. Will reinitiate Pitocin augmentation.
[2021-09-11] MEDS: OXYTOCIN PREMIX 30 UNIT/500 ML PLAST..BAG IV (10:47)
[2021-09-11] MEDS: fentaNYL 100 MCG/2 ML INJ 50 MCG IV (15:27)
[2021-09-11] MEDS: LABETALOL 20 MG/4 ML SYRINGE IV ×2 (16:41→17:15)
--- NOTE | 2021-09-11 17:16 | PM.OBPNLAB ---
Date/Time Date Patient Seen: 09/11/21 Time Patient Seen: 17:25 Pain Control Pain control: narcotic analgesia Comments: Patient experiencing much more discomfort and is requesting MATEUSZ when available Pelvic Exam Dilation (cm): 2 Effacement (%): 80 station: -2 Amniotic membrane status: Intact Contractions Contractions on admission: none Monitor mode: External Pitocin rate (mU/min): 8 Contraction frequency (min): 2 Contraction duration (min): 1 Contraction pattern: Irregular Contraction phase: Resting Contraction intensity: Mild Status status: Category l Assessment and Plan Assessment: induction ongoing Plan: other (See below) Comments: BP has been elevated into severe range and required IV Labetalol x 2 in addition to 200 mg PO every 8 hrs. PIH/PEC labs repeated and will initiate MgSO4 4 gm loading dose with 2 gm infusion. Will ask Anesthesia to place MATEUSZ as soon as available and reassess BP and cervical exam once she's more comfortable.
[2021-09-11] MEDS: MAGNESIUM SULFATE 4 GM/100 ML PIGGYBACK IV (17:33)
[2021-09-11] MEDS: MAGNESIUM SULFATE 20 GM/500 ML IV.SOLN IV (17:54)
[2021-09-11 18:04] LABS: Add Manual Diff / Slide Review NO; Basophils Absolute Auto 200 /uL (0-100); Basophils Percent Auto 0.8 % (0-2); Eosinophils Absolute Auto 100 /uL (0-450); Eosinophils Percent Auto 0.4 % (2-4); Hematocrit 35.5 % (36-46); Hemoglobin 12.2 g/dL (12.0-16.0); Lymphocytes Absolute Auto 3300 /uL (1100-4500); Lymphocytes Percent Auto 17.4 % (25-40); Mean Corpuscular HGB Conc 34.4 % (30-36); Mean Corpuscular Hemoglobin 29.5 PG (26-34); Mean Corpuscular Volume 85.9 fL (80-100); Monocytes Absolute Auto 1300 /uL (0-900); Monocytes Percent Auto 6.9 % (3-14); Neutrophils Absolute Auto 14100 /uL (1500-7000); Neutrophils Percent Auto 74.5 % (50-75); Platelet Count 256 X10^3/uL (150-400); Red Blood Cell Count 4.14 X10^6/uL (4.0-5.2); Red Cell Distribution Width 14.2 % (11.6-14.8); White Blood Cell Count 18.9 X10^3/uL (4.5-11.0)
[2021-09-11 18:20] LABS: Alanine Aminotransferase 10 IU/L (<35); Albumin 3.2 g/dL (3.5-5.0); Albumin Globulin Ratio 0.9 (1.0-2.8); Alkaline Phosphatase 199 U/L (38-126); Aspartate Aminotransferase 21 IU/L (14-36); BUN Creatinine Ratio 15.2 (6-22); Bilirubin Total 0.5 mg/dL (0.2-1.3); Blood Urea Nitrogen 10 mg/dL (7-17); Calcium 8.9 mg/dL (8.4-10.2); Carbon Dioxide 18 mmol/L (22-32); Chloride 107 mmol/L (98-107); Estimated Glomerular Filt Rate > 60 mL/min (>60); Globulin 3.7 g/dL (1.7-4.1); Glucose 82 mg/dL (70-100); HEMOLYSIS < 15 (0-50); Potassium 4.2 mmol/L (3.4-5.1); Sodium 132 mmol/L (137-145); Total Protein 6.9 g/dL (6.3-8.2); Uric Acid 6.4 mg/dL (2.5-6.2)
--- NOTE | 2021-09-11 18:57 | P.PNOB_ITS ---
Date/Time Date Patient Seen: 09/11/21 Time Patient Seen: 18:21 Pain Control Comments: Poorly tolerated but better with Pitocin off. Pelvic Exam Dilation (cm): 2 Effacement (%): 80 station: -2 Amniotic membrane status: Intact Contractions Monitor mode: External Pitocin rate (mU/min): 0 Contraction frequency (min): 2 Contraction pattern: Irregular Contraction phase: Resting Contraction intensity: Mild Status status: Category ll Heart Rate Baseline: 125 Monitor Accelerations: Present Monitor Decelerations: Variable (Isolated, rapid drop to 90's and rapid return to BL < 45 seconds below BL) Monitor Variability: Moderate Comments: Two late decelerations down to 80's @1815. Pitocin off @ 1810. MAP 86 immediately prior. Assessment and Plan Assessment: induction ongoing Comments: Pitocin discontinued for now. MATEUSZ placed and discuss options/next steps with patient and her . At present there is no clear indication for operative delivery via section. The option of patient electing to move to delivery was discussed however and patient sure the patient autonomy would be ordered at that is a decision she makes. They do not wish to proceed in that direction but rather to slowly reinstitute Pitocin infusion in hopes of progress toward vaginal . Patient and her however do understand that should she start developing heart rate tracing findings suggestive of potential compromise, emergent operative delivery by section may be necessary and no guarantee of successful vaginal can be given if induction is resumed. 09/11/20212000: Isolated late deceleration associated with MAP drop to 70 resolved with fluid bolus and IV ephedrine. 09/11/2021, 2034: Follow-up discussion with patient and post- resuscitation and they have made a decision to proceed with primary section due to intolerance of labor remote from delivery. Patient and spouse counseled regarding alternatives, risks, benefits, and potential complications associated with primary section. With full understanding of the above, a written consent will be executed, signed, and witnessed this date. OR notified of plan to proceed with primary section and orders submitted.
--- NOTE | 2021-09-11 20:46 | PM.PREOP ---
Pre-operative Note COVID-19 COVID-19 status: Negative Result date/Date tested (Pos, Neg/Pending): 09/09/21 Criteria for continued procedure: Non-surgical alternatives not available or appropriate per current SOC Interval Note History & Physical reviewed/Exam performed by Physician: Yes Changes to H&P: No
--- NOTE | 2021-09-11 21:32 | P.OP_ITS ---
Operative Date/Time/Diagnoses Date of procedure: 09/11/21 Time of procedure: 21:50 Pre-op diagnosis: Intrauterine , christian, vertex, 38+3 weeks EGA Gestational hypertension/Preeclampsia with severe features intolerance of labor; remote from delivery Post-op diagnosis: other (Same as above, delivered) Procedure & Clinicians Procedure: Primary cesrean section (Low transverse cervical) Same procedure as scheduled: Yes Indications: Mayda Najera is a 31 year old primigravida admitted at 38+ 2 weeks gestational age with gestational hypertension starting in the 3rd trimester which has required labetalol 300 mg p.o. b.i.d. to control her blood pressures in the mildly hypertensive range.? Serial PIH/preeclampsia labs have been negative and weekly NSTs have been reassuring.? Her most recent growth ultrasound on 08/05/2021 shows the infant to be at the 55th percentile insofar as EFW.? GBS is negative. She was admitted for ripening on the evening of 09/09/2021 and underwent with ripening with cytotec and Pitocin was started on the morning of 09/10/2021. She didn't progress after 10 hours of Pitocin, the Pitocin was sto pped, and a Cervidil placed on the evening of 09/10/2021 and removed this AM. Pitocin induction resumed this AM but cervix still hasn't changed after another 10 hours of Pitocin and she's had episodes of late decelerations with cervix still 2 cm and the vertex at -2 station. Both episodes of late decelerations occurred with relatively minor drops in MAP suggesting limited placental reserve and intrauterine resuscitation, while successful, has created significant fear for the patient and her . Due to concern re: potential risks to mother and infant, patient and her spouse have decided to proceed with delivery via primary cesrean section rather than attempting continued induction. Surgeon: Buster Gomez Mushroom Press Operator: Mikayla Brody Reason for Mushroom Press Operator: Retraction and for the safe, effective, and timely performance of this complex surgical procedure Anesthesia Type: Epidural Operative Notes Findings: Viable female infant, Apgars 9/9 , weight 2763 gms. (6# 1.5oz.). Normal gravid anatomy. Closure Type: primary Specimen(s): cord blood Intraoperative meds administered: Acetaminophen Applied: Catheter Estimated Blood Loss (mL): 750 Blood products transfused: none Procedure in detail: With her informed written consent, the patient was taken to the operating room and placed in the supine position for a primary section procedure, for the indication(s) above. The abdomen was prepped and draped in the usual manner for section and a pre-surgical timeout was taken per [facility] OR protocol. Once effective anesthesia was confirmed, a 15 cm transverse Pfannenstiel incision was made in the skin and taken down through the subcutaneous tissues to the deep fascia. The deep fascia was incised transversely, the rectus abdominal eyes bluntly and sharply, and the peritoneal cavity entered without difficulty. The lower uterine segment was visualized and the position/presentation palpated. A transverse incision at or above the vesicouterine reflection was made with Metzenbaum scissors and transverse hysterotomy performed near the midline. Amniotomy revealed clear fluid. The incision was extended bilaterally with digital traction and the in brent was delivered without difficulty from the vertex presentation. The infant was vigorous and cord clamping delayed for 60 seconds. The placenta was delivered intact using gentle cord traction and fundal massage.The uterine cavity was then cleared of any clot/debris first with a sloppy wet lap tape followed by a dry lap tape. Ring forceps were then applied to the angles and the midline of the incised MARIA ELENA. A primary closure of the uterus was then accomplished with #1 CCGS in a running interlocking stitch followed by a 2nd layer of #1 CCGS in a running interlocking imbricating stitch. Three additional figure of eight sutures were required to achieve complete hemostasis. An ascending uterine artery suture was required on the right side. Once pelvic hemostasis was assured, the anterior peritoneum was closed with a running 2-0 Vicryl suture and the fascia closed with #1 Vicryl in a running stitch initiated at both angles and tying separately near the midline. The subcutaneous tissues were reapproximated with 2-0 plain catgut suture using inverted interrupted stitches. The skin edges were then brought together with 4-0 Monocryl in a subcuticular closure and the incision was reinforced with one inch Steri-Strips. An appropriate dressing was applied and the patient transferred to PACU for recovery and subsequent transfer to the Center for recuperation. Complications: none [place] Baby 1: Gender: Female Presentation: vertex Position: Left Occiput Anterior Placental Delivery Description: Spontaneous and Expressed Cord Vessel Description: 3 Vessels score (1 min): 9 score (5 min): 9 weight: 6 lb 1.462 oz Post-operative Condition: stable Disposition: PACU Aftercare: routine postop
[2021-09-11] MEDS: CEFAZOLIN 2 GM/20 ML SYRINGE IV (21:45)
[2021-09-11] MEDS: AZITHROMYCIN 500 MG in DEXTROSE 5% IN WATER 250 ML 250 MG IV (21:53)
--- NOTE | 2021-09-11 22:01 | SUR.OPER ---
Supine on Padded OR bed, head on pillow, safety belt at thigh, arms secured on padded arm boards at <90 degrees abduction. Bump under right buttock. Legs uncrossed with pillow under knees, gel pad to heels, tape over blanket to lower legs.
--- NOTE | 2021-09-11 22:14 | SUR.OPER ---
Viable baby girl born at 2203. Placenta and cord blood given to Jessie Ortiz RN.
[2021-09-11] MEDS: OXYCODONE/ACETAMINOPHEN 5/325 TABLET 1 TAB PO (23:07)
[2021-09-11] MEDS: KETOROLAC 30 MG/ML VIAL IV (23:19)
[2021-09-12] MEDS: LACTATED RINGERS 1,000 ML 75 ML IV ×2 (00:09→12:55)
[2021-09-12] MEDS: OXYCODONE IR 5 MG TABLET PO (02:58)
[2021-09-12] MEDS: diphenhydrAMINE 25 MG TABLET PO (02:58)
[2021-09-12] MEDS: MAGNESIUM SULFATE 20 GM/500 ML IV.SOLN IV ×2 (06:02)
[2021-09-12 07:30] LABS: Alanine Aminotransferase 10 IU/L (<35); Albumin 2.8 g/dL (3.5-5.0); Albumin Globulin Ratio 0.8 (1.0-2.8); Alkaline Phosphatase 161 U/L (38-126); Aspartate Aminotransferase 25 IU/L (14-36); BUN Creatinine Ratio 11.7 (6-22); Bilirubin Total 0.3 mg/dL (0.2-1.3); Blood Urea Nitrogen 9 mg/dL (7-17); Calcium 7.4 mg/dL (8.4-10.2); Carbon Dioxide 24 mmol/L (22-32); Chloride 101 mmol/L (98-107); Estimated Glomerular Filt Rate > 60 mL/min (>60); Globulin 3.4 g/dL (1.7-4.1); Glucose 85 mg/dL (70-100); HEMOLYSIS < 15 (0-50); Potassium 4.1 mmol/L (3.4-5.1); Sodium 129 mmol/L (137-145); Total Protein 6.2 g/dL (6.3-8.2)
[2021-09-12 07:34] LABS: Magnesium 6.6 mg/dL (1.6-2.3)
[2021-09-12 07:40] LABS: Add Manual Diff / Slide Review NO; Basophils Absolute Auto 0 /uL (0-100); Basophils Percent Auto 0.2 % (0-2); Eosinophils Absolute Auto 0 /uL (0-450); Eosinophils Percent Auto 0.2 % (2-4); Hematocrit 32.5 % (36-46); Hemoglobin 10.8 g/dL (12.0-16.0); Lymphocytes Absolute Auto 2500 /uL (1100-4500); Lymphocytes Percent Auto 13.9 % (25-40); Mean Corpuscular HGB Conc 33.3 % (30-36); Mean Corpuscular Hemoglobin 29.2 PG (26-34); Mean Corpuscular Volume 87.6 fL (80-100); Monocytes Absolute Auto 1200 /uL (0-900); Monocytes Percent Auto 6.8 % (3-14); Neutrophils Absolute Auto 14300 /uL (1500-7000); Neutrophils Percent Auto 78.9 % (50-75); Platelet Count 226 X10^3/uL (150-400); Red Blood Cell Count 3.71 X10^6/uL (4.0-5.2); White Blood Cell Count 18.1 X10^3/uL (4.5-11.0)
[2021-09-12] MEDS: LABETALOL 100 MG TABLET 200 MG PO ×3 (08:32→20:51)
[2021-09-12] MEDS: DOCUSATE 100 MG CAPSULE 200 MG PO (08:32)
[2021-09-12] MEDS: ACETAMINOPHEN 325 MG TABLET 650 MG PO ×3 (08:33→22:02)
[2021-09-12] MEDS: IBUPROFEN 600 MG TABLET PO (08:33)
[2021-09-12 13:24] LABS: Magnesium 7.2 mg/dL (1.6-2.3)
--- NOTE | 2021-09-12 13:37 | P.PNOB_ITS ---
Subjective - OB Subjective Patient comments: no complaints, incisional pain and flatus present baby status: doing well and nursing well [place] feeding status: exclusively breast feeding Date Patient Seen: 09/12/21 Time Patient Seen: 13:37 Interval history: 31-year-old 1 para 1 postop day 0-1 status post primary section. Severe preeclampsia. On magnesium sulfate. No headache. Feels a little dizzy this morning. No blurred vision. Exam Vital Signs (past 8 hours): Oxygen Delivery Method Room Air Narrative Exam Narrative: Generally: Patient is sitting up in bed, holding infant, no acute distress Lungs: Clear to auscultation bilaterally Cardiovascular: Regular rate and rhythm Fundus: Firm at U -1 Abdomen: Soft, appropriately tender. Incision: Clean dry and intact with Aquacel dressing Extremities: 2+ DTRs, negative Homans, 1+ edema Objective Labs Result Diagrams: 09/12/21 06:40 09/12/21 06:40 Labs: Laboratory Results - last 24 hr 09/11/21 09/11/21 09/12/21 17:50 17:50 06:40 WBC 18.9 H 18.1 H RBC 4.14 3.71 L Hgb 12.2 10.8 L Hct 35.5 L 32.5 L MCV 85.9 87.6 MCH 29.5 29.2 MCHC 34.4 33.3 RDW 14.2 14.0 Plt Count 256 226 Neut % (Auto) 74.5 78.9 H Lymph % (Auto) 17.4 L 13.9 L [place] % (Auto) 6.9 6.8 Eos % (Auto) 0.4 L 0.2 L Baso % (Auto) 0.8 0.2 Neut # (Auto) 01306 H 42804 H Lymph # (Auto) 3300 2500 [place] # (Auto) 1300 H 1200 H Eos # (Auto) 100 0 Baso # (Auto) 200 H 0 Sodium 132 L Potassium 4.2 Chloride 107 Carbon Dioxide 18 L BUN 10 Creatinine 0.66 Estimated GFR > 60 BUN/Creatinine Ratio 15.2 Glucose 82 Uric Acid 6.4 H Calcium 8.9 Magnesium Total Bilirubin 0.5 AST 21 ALT 10 Alkaline Phosphatase 199 H Total Protein 6.9 Albumin 3.2 L Globulin 3.7 Albumin/Globulin Ratio 0.9 L 09/12/21 09/12/21 06:40 13:05 WBC RBC Hgb Hct MCV MCH MCHC RDW Plt Count Neut % (Auto) Lymph % (Auto) [place] % (Auto) Eos % (Auto) Baso % (Auto) Neut # (Auto) Lymph # (Auto) [place] # (Auto) Eos # (Auto) Baso # (Auto) Sodium 129 L Potassium 4.1 Chloride 101 Carbon Dioxide 24 BUN 9 Creatinine 0.77 Estimated GFR > 60 BUN/Creatinine Ratio 11.7 Glucose 85 Uric Acid Calcium 7.4 L Magnesium 6.6 H* 7.2 H* Total Bilirubin 0.3 AST 25 ALT 10 Alkaline Phosphatase 161 H Total Protein 6.2 L Albumin 2.8 L Globulin 3.4 Albumin/Globulin Ratio 0.8 L Assessment & Plan Plan day: 1 Comments: Discontinue the magnesium sulfate at 5:00 p.m. Time Spent With Patient Time: Total time spent is greater than 50% in coordination of care (as documented) at patient's floor/unit and/or counseling patient: Time with patient: 15-24 minutes
[2021-09-12] MEDS: KETOROLAC 30 MG/ML VIAL IV ×2 (14:04→22:02)
[2021-09-12] MEDS: LANOLIN OINT 7 GM 1 APPLIC TOP (14:05)
[2021-09-12 15:08] VITALS: BP 125/80; PULSE 67
[2021-09-12 20:51] VITALS: BP 148/86; PULSE 73
[2021-09-12 22:00] VITALS: BP 113/69; PULSE 85
[2021-09-12 23:00] VITALS: BP 120/82; PULSE 69; RESP 16; TEMP 36.9
[2021-09-13] MEDS: IBUPROFEN 600 MG TABLET PO ×2 (04:01→10:04)
[2021-09-13] MEDS: ACETAMINOPHEN 325 MG TABLET 650 MG PO ×2 (04:01→10:05)
[2021-09-13] MEDS: DOCUSATE 100 MG CAPSULE 200 MG PO (08:48)
[2021-09-13 08:49] VITALS: BP 120/82; PULSE 71
[2021-09-13] MEDS: LABETALOL 100 MG TABLET 200 MG PO (08:49)
--- NOTE | 2021-09-13 09:15 | P.DS_ITS ---
Discharge Providers Provider Date of admission: 09/09/21 18:45 Discharge Date: 09/13/21 Primary care physician: Doctor Corwin MD Consults: 09/11/21 23:24 Consult to Import Customer Service Manager Routine Comment: Discharge provider: Buster Gomez MD Summary Hospital Course Date Patient Seen: 09/13/21 Time Patient Seen: 09:00 Diagnoses: Intrauterine , Mustafa, 38+ 3 weeks gestational age, delivered Gestational hypertension/preeclampsia with severe features intolerance of labor Hospital Course: Mayda was admitted for induction at 38+ 0 weeks gestational age due to gestational hypertension requiring 600 mg labetalol daily. She underwent cervical ripening with Cytotec on the evening of 09/09/2021 and 1st day of Pitocin induction on 09/10/2001. She made no significant progress and had a Cervidil placed on the evening of 09/10/2021 and Pitocin was resumed on the morning of 09/11/2021. Patient had regular uterine contractions requiring IV narcotics for relief but did not change her cervix, remaining at 2 cm dilation with the vertex at -2 station over period of about 12 hours. During that same time, her blood pressure despite 600 mg of oral labetalol spiked in to the severe range and she received 2 doses of IV labetalol for control. During this time the patient had a series of late decelerations responding to intrauterine resuscitation and an epidural was placed. The patient then had a 2nd run of late decelerations and with the patient remote from delivery, and the patient very concerned about and maternal well-being, the decision was made to proceed to primary section rather than continue the induction. On the evening of 09/11/2021 she underwent of unremarkable primary delivery by low transverse cervical incision with delivery of a viable female infant. The details of the surgery are well summarized in my operative note of that date. Following surgery the patient has done extremely well with prompt return of bowel and bladder function, she is ambulating independently, tolerating regular diet, and her pain is well controlled with oral medication. First morning hemo globin and hematocrit were consistent with observed operative losses and her preeclampsia labs all remained normal throughout the course of her hospitalization. She is discharged at this time in an afebrile normotensive condition home after being counseled regarding precautionary symptoms, limitati ons of activity, medications, and plans for follow-up. Medications at discharge will include ibuprofen 600 mg p.o. Q 6 hours as needed pain, oxycodone 5 mg p.o. Q 4-6 hours dispense 10 with no refills, and Colace 200 mg p.o. q.d. times 30 days. In addition the patient will continue taking labetalol it was dosage of 200 mg b.i.d. and she will be taking her blood pressures at home at least twice daily and report any elevations into or near the severe range. Follow-up will be in 1 week for incision check or as needed. Peripartum Data Delivery Method: Section Episiotomy description: None complications: none [place] 1: Gender: Female Disposition of : home Status at Discharge Cognitive/behavioral status at discharge: oriented Functional status at discharge: independent ambulation Overall status at discharge: patient is progressing back to baseline Time Spent with Patient Time attestation: Total time spent providing and/or coordinating discharge services: Time spent: Less than 30 minutes Objective Labs Result Diagrams: 09/12/21 06:40 09/12/21 06:40 Labs: Laboratory Results - last 24 hr 09/12/21 13:05 Magnesium 7.2 H* Exam Vital Signs (past 8 hours): - 09/13/21 08:49 Pulse Rate 71 Blood Pressure 120/82 Oxygen Delivery Method Room Air Const General: cooperative and comfortable Nutritional Appearance: average body habitus Orientation: alert and oriented x3 HENMT Head: normal to inspection, atraumatic and abrasion Ears: hearing grossly normal bilaterally Face and sinus: face symmetric Eyes General: appearance normal, both eyes and all related structures Conjunctivae: conjunctivae normal Sclera: sclerae normal EOM: EOM intact bilaterally Neck Neck: normal visual inspection Resp Effort & Inspection: normal respiratory effort and able to speak in complete sentences Auscultation: clear to auscultation bilaterally Cardio Rate: regular rate Rhythm: regular rhythm Heart Sounds: S1 normal, S2 normal and no murmurs GI Inspection: normal to inspection and incision (Surgical dressings clean and dry) Palpation: soft, no hepatosplenomegaly and tender (Mild, diffuse postsurgical tenderness) External Female Exam: other (No significant bleeding noted) Extrem General: no calf tenderness Psych Appearance: grossly normal Mental Status: mental status grossly normal Speech and Movement: speech and movement normal Mood: congruent mood Affect: normal affect Attitude: cooperative Thought Process: normal Thought Content: normal Judgment: judgment good Discharge Plan Discharge Plan Patient Disposition: Home Provider Discharge Comment: Please review the instructions you received when you were discharged from the hospital. Be sure to keep taking her blood pressure at least twice daily and report any blood pressures at or above 150/100. Your follow-up appointment will be in 1 week and I look forward to seeing you then. If in the meanwhile however you have any concerns, problems, or other issues, please contact me through the office phone or via the patient portal. Discharge orders & Medications Prescriptions: New docusate sodium 100 mg Capsule 200 mg PO DAILY 30 Days Qty: 60 2RF ibuprofen 600 mg Tablet 600 mg PO Q6H PRN (Reason: Fever/Mild Pain (1-3)) Qty: 60 0RF oxycodone 5 mg Tablet 5 mg PO Q4H PRN (Reason: Pain, Moderate (4-6)) Qty: 10 0RF labetalol 200 mg tablet 200 mg PO BID Qty: 60 2RF Continued ondansetron 4 mg tablet,disintegrating 4 mg PO Q6-8H PRN (Reason: nausea and vomiting) Qty: 20 2RF prenat.vits,bentley,[id number] Tablet 1 tab PO DAILY 0RF albuterol sulfate 90 mcg/actuation aerosol powdr breath activated 1 inh inhalation Q4-6H PRN (Reason: Vaginal Irritation) 0RF Discontinued labetalol 200 mg tablet 300 mg PO BID 0RF Follow up/Referrals: Doctor Olivia MD [Primary Care Provider] - (Call on Tuesday for an appointment for aquacel removal in 1 week ([phone])) Discharge Health Status Multidrug resistant organism: No MDRO Diet/Activity/Treatments Diet: Diet as Tolerated Activity: As tolerated Other treatments: Tylenol for pain as needed Skin/Wound/Dressing Care Dressing: Dressing will be removed at your post-op vissit Visit Report/Discharge Packet Instructions: DI for , DI for and Nipple Soreness, DI for Prescription Opioid Use Discharge Data Primary Care Provider: Doctor Corwin
[2021-09-13] MEDS: MEASLES,MUMPS,RUBELLA VACC/PF 0.5 ML VIAL SUBCUT (12:00)
== END 2021-09-13 12:30 | disposition home or self-care (01) | DRG 788 ==
PROVIDERS: Admitting Provider Obstetrics & Gynecology; Referring Provider Obstetrics & Gynecology; Visit Provider Obstetrics & Gynecology
PROC: 10D00Z1 Extraction of Products of Conception, Low, Open Approach (ICD-10-PCS; CPT 59514; principal; 2021-09-11 21:15)
DX: O14.14 Severe pre-eclampsia complicating childbirth (principal); Z3A.38 38 weeks gestation of pregnancy; Z37.0 Single live birth; O76 Abnormality in fetal heart rate and rhythm complicating labor and delivery; Z20.822 Contact with and (suspected) exposure to COVID-19; O99.52 Diseases of the respiratory system complicating childbirth; J45.909 Unspecified asthma, uncomplicated
CPT/HCPCS: 01967; 01968; 36415; 59050; 59200; 59510; 59514; 80053; 83735; 84450; 84550; 85025; 86850; 86900; 86901; 87635; C9803; G0379; J0171; J0690; J1885; J2274; J2405; J2590; J3010; J3475

== ENCOUNTER → 2022-10-05 18:42 | Outpatient (CLI) | payer OTHER, SELFPAY ==
--- NOTE | 2022-10-05 18:43 | DI.RAD.S_ITS ---
PROCEDURE: XR HAND RT MIN 3V INDICATIONS: Right thumb pain TECHNIQUE: 3 views of the hand(s) acquired. COMPARISON: None. FINDINGS: Bones: No fractures or dislocations. Carpal bones are normally aligned. No suspicious bony lesions. Soft tissues: No suspicious soft tissue calcifications. IMPRESSION: No acute osseous abnormality. If symptoms persist, follow-up radiographs and/or CT or MRI may be helpful for further evaluation. Dictated by: Eris Sherman M.D. on 10/05/2022 at 20:35 Approved by: Eris Sherman M.D. on 10/05/2022 at 20:36
== END ==
PROVIDERS: PCP Registered Nurse Diabetes Educator; Referring Provider Physician Assistant; Visit Provider Physician Assistant
DX: M79.644 Pain in right finger(s) (principal)
CPT/HCPCS: 73130

== ENCOUNTER 2022-10-07 10:17 | Emergency (ER) | payer OTHER, SELFPAY ==
[2022-10-07 10:22] VITALS: BP 151/74; PULSE 96; RESP 15; TEMP 36.7; O2SAT 100; BMI 38.0
--- NOTE | 2022-10-07 10:27 | PC.NURSE ---
Pt has swelling of left eyelid,upper and lower. Pts eye is also red.
--- NOTE | 2022-10-07 10:38 | ED_ITS ---
HPI - Eye Problem <DANIELITO Hoskins - Last Filed: 10/07/22 12:38> General Chief complaint: Eye Problems Stated complaint: swollen eyes, thinks allergic reaction, eye pain Time Seen by Provider: 10/07/22 10:32 Source: patient Mode of arrival: Ambulatory History of Present Illness HPI Narrative: This is a 32-year-old female presents emergency department with 3 days of progressing left eye irritation, eyelid edema, conjunctival injection and clear tearing. States that she thought it was allergies and it is very itchy, she is taking Claritin, Benadryl and Zyrtec and has not had an improvement. States that she has tried allergy drops and this was not helpful either. She denies any trauma to her eye. Denies fever/chills. Denies difficulty with eye movement, vision changes, or eye pain with eye movement. Complains mostly of itching to her eye with clear discharge. States that it started as thick and goopy opaque discharge but now it is clear and sometimes thick. She does not wear contacts. Does not have known allergies Related Data Home Medications Medication Instructions Recorded Confirmed ibuprofen 200 mg capsule 400 mg PO Q8H 12/31/21 12/31/21 Previous Rx's Medication Instructions Recorded albuterol sulfate 90 mcg/actuation 2 puff inhalation Q4-6H PRN 12/31/21 aerosol inhaler shortness of breath or wheezing #8.5 grams escitalopram oxalate 10 mg tablet 5 mg PO DAILY #30 tabs 12/31/21 (Lexapro) fluticasone propionate 110 2 puff inhalation BID #12 grams 12/31/21 mcg/actuation HFA aerosol inhaler (Flovent HFA) cephalexin 500 mg capsule 500 mg PO BID 5 days #10 caps 10/07/22 olopatadine 0.2 % eye drops 1 drp EYE-LEFT BID 4 days #2.5 mL 10/07/22 Allergies Allergy/AdvReac Type Severity Reaction Status Date / Time No Known Drug Allergies Allergy Verified 10/07/22 10:23 Review of Systems <DANIELITO Hoskins - Last Filed: 10/07/22 12:38> Review of Systems ROS Unobtainable: All systems reviewed & are unremarkable except as noted in HPI and below Patient History <DANIELITO Hoskins - Last Filed: 10/07/22 12:38> Medical History ADHD (~1996) Anxiety Asthma (~1995) Degenerative disc disease (~2010) Depression Gestational hypertension (~2021) Mild persistent asthma Osteoarthritis (~2010) Scoliosis (~2010) Surgical History Anesthesia History of section (~09/11/21) [place] teeth removed (~2018) Family History Mother Hypertension Hyperlipidemia Diabetes mellitus Depression TIA (transient ischemic attack) Father Rheumatoid arthritis Shingles Hypertension Grandmother Diabetes mellitus TIA (transient ischemic attack) Cancer Grandfather Cancer Grandmother Unknown family medical history Grandfather Unknown family medical history Social History marital status: unmarried,living together household members: significant other lives independently: Yes caregiver/support person: No pets and animals: Yes (3 cats, 11 rabits, rescues cats and rabbits) occupational status: employed current occupational exposures/hazards: Yes (high stress enviornment) Previous occupational history: [employer] jaziel/scientology: None special jaziel needs: No travel history: recent (drove to [facility]) Smoking Status: Never smoker alcohol intake: former (prepregnancy very rare allergic) substance use type: does not use Smoking Status: Never smoker alcohol intake frequency: holidays/special occasions only Substance Use Type: does not use Exam <DANIELITO Hoskins - Last Filed: 10/07/22 12:38> Narrative Exam Narrative: Reviewed vitals signs and nursing notes. General: Pleasant, sitting upright, in no acute distress, well groomed, afebrile HEENT: symmetrical facial expressions, moist mucous membranes, neck is supple, mild congestion, fluorescein exam without uptake to left eye, conjunctival injection on the left, clear tears and mucus discharge, no purulent discharge Skin: brisk capillary refill, without rash or wound Neuro: clear speech and normal cognition, A&O x3, GCS 15, no focal motor or sensation deficits Initial Vital Signs Initial Vital Signs: Vital Signs Temperature 98.1 F 10/07/22 10:22 Pulse Rate 96 H 10/07/22 10:22 Respiratory Rate 15 10/07/22 10:22 Blood Pressure 151/74 H 10/07/22 10:22 Pulse Oximetry 100 10/07/22 10:22 Oxygen Delivery Method Room Air 10/07/22 10:22 <Rohan Ledezma DO - Last Filed: 10/08/22 08:44> Initial Vital Signs Initial Vital Signs: Vital Signs Temperature 98.1 F 10/07/22 10:22 Pulse Rate 96 H 10/07/22 10:22 Respiratory Rate 15 10/07/22 10:22 Blood Pressure 151/74 H 10/07/22 10:22 Pulse Oximetry 100 10/07/22 10:22 Oxygen Delivery Method Room Air 10/07/22 10:22 Course <DANIELITO Hoskins - Last Filed: 10/07/22 12:38> Orders Ordered: Discontinued Medications Erythromycin (Erythromycin Ophth 1 Gm Oint) 1 applic EYE-LEFT NOW ONE Stop: 10/07/22 10:36 Last Admin: 10/07/22 10:46 Dose: 1 applic Documented By: SUDARSHAN Fluorescein Sodium (Fluorescein 1 Mg Strip) 1 mg EYE-LEFT NOW ONE Stop: 10/07/22 10:36 Last Admin: 10/07/22 10:46 Dose: 1 mg Documented By: SUDARSHAN Proparacaine HCl (Proparacaine 0.5% Ophth Lynne) 1 drops EYE-LEFT NOW ONE Stop: 10/07/22 10:36 Last Admin: 10/07/22 10:46 Dose: 1 1000units Documented By: SUDARSHAN Vital Signs Vital signs: Vital Signs - 8 hr 10/07/22 10:22 Temperature 98.1 F Pulse Rate 96 H Respiratory Rate 15 Blood Pressure 151/74 H Pulse Oximetry 100 Oxygen Delivery Method Room Air <Rohan Ledezma DO - Last Filed: 10/08/22 08:44> Orders Ordered: Discontinued Medications Erythromycin (Erythromycin Ophth 1 Gm Oint) 1 applic EYE-LEFT NOW ONE Stop: 10/07/22 10:36 Last Admin: 10/07/22 10:46 Dose: 1 applic Documented By: SUDARSHAN Fluorescein Sodium (Fluorescein 1 Mg Strip) 1 mg EYE-LEFT NOW ONE Stop: 10/07/22 10:36 Last Admin: 10/07/22 10:46 Dose: 1 mg Documented By: SUDARSHAN Proparacaine HCl (Proparacaine 0.5% Ophth Lynne) 1 drops EYE-LEFT NOW ONE Stop: 10/07/22 10:36 Last Admin: 10/07/22 10:46 Dose: 1 1000units Documented By: SUDARSHAN Vital Signs Vital signs: Vital Signs - 8 hr 10/07/22 10:22 Temperature 98.1 F Pulse Rate 96 H Respiratory Rate 15 Blood Pressure 151/74 H Pulse Oximetry 100 Oxygen Delivery Method Room Air MDM - Eye Problem <KYLIE HoskinsP - Last Filed: 10/07/22 12:38> MDM Narrative Medical decision making narrative: Chief Complaint: Left eye pain and itching Primary historian: Patient Multiple etiologies for patient's complaint considered including, but not limited to: Corneal abrasion, blepharitis, stye, chalazion, allergic conjunctivitis, bacterial/viral conjunctivitis, periorbital cellulitis, scleritis, iritis, uveitis, dry eyes This is a 32 year-old patient presenting with left red eye with irritation for the last 3 days without trauma. Otherwise well-appearing. Fluorescein exam does not show fluorescein uptake, no evidence of corneal abrasion or ulcer. No urticarial rash to suggest allergic reaction. No airway swelling, wheezing, without angioedema, no vision change, or pain with EOM to suggest orbital cellulitis. Visual acuity with normal vision bilaterally and together, uncorrected Patient does not wear contact lenses. This is most likely viral conjunctivitis as patient has nasal congestion, mild rhinorrhea, no evidence of dacryocystitis, no eye pain with eye movement, mild periorbital edema, treated with erythromycin ointment, Pataday allergy drops, and an oral course of cephalexin to start tomorrow if she has any worsening with a recommendation to follow up with Dr. Yuan from [facility] if she has any worsening. Will treat empirically with antibiotics and antihistamines. Discussed need for outpatient follow-up and return precautions for signs/symptoms of orbital cellulitis or anaphylaxis. I have independently reviewed the patient's vital signs and nursing notes as well as prior records if available. Social considerations that may affect disposition: none Questions are addressed and there is agreement with the plan and for follow-up. I consulted with the ED attending physician Dr. Ledezma as needed for higher level of care considerations and they were available for discussion and recommendations regarding plan of care and diagnostic testing. Patient is appropriate for outpatient management. Discharge Plan Departure Patient Disposition: Home Clinical Impression: Conjunctivitis Qualifiers: Conjunctivitis type: acute Acute conjunctivitis type: unspecified Laterality: left Qualified Code(s): H10.32 - Unspecified acute conjunctivitis, left eye Instructions: Conjunctivitis Activity Restrictions/Additional Instructions: *You have been diagnosed with conjunctivitis, this appears to be viral in comparison to bacterial however you were given antibiotic ointment to use 4 times a day for the next 5 days. If this gets worse after 4 doses today by tomorrow, please start the oral antibiotic. Please continue with Zyrtec, it is likely have an upper respiratory infection causing this conjunctivitis and I have given you Olopatiadine allergy drops to use twice a day for 4 days if that is helpful for your symptoms. The antibiotic for your eye acts as a lubricant which may offer you some relief. *What to do: *Please continue to take your regular medications as directed. [ x] New medication prescriptions sent to your pharmacy: [ [facility] [place]] [ ] New medication written as a paper prescription [ ] No new medications given *Please call and schedule follow up with your primary care provider in 2-3 days, at least for an update. Let them know you were seen in the Emergency Department for the above problem. We will electronically transmit a record of today's note if your PCP or specialist is in our system. *If you do not have a primary care provider please contact [phone] to establish care with one of the [facility] primary care providers. *Return to the Emergency Department for worsening symptoms, inability to keep liquids down, fever greater than 101F, chills, or other concerning symptom. Prescriptions: New olopatadine 0.2 % drops 1 drp EYE-LEFT BID 4 Days Qty: 2.5 0RF cephalexin 500 mg capsule 500 mg PO BID 5 Days Qty: 10 0RF No Action ibuprofen 200 mg capsule 400 mg PO Q8H escitalopram oxalate [Lexapro] 10 mg tablet 5 mg PO DAILY Qty: 30 1RF Rx Instructions: After 4 days if no side effects increase to 1 tab daily fluticasone propionate [Flovent HFA] 110 mcg/actuation HFA aerosol inhaler 2 puff inhalation BID Qty: 12 3RF Rx Instructions: Rinse mouth and throat after use albuterol sulfate 90 mcg/actuation HFA aerosol inhaler 2 puff inhalation Q4-6H PRN (Reason: shortness of breath or wheezing) Qty: 8.5 3RF Referrals: Yvonne Yuan MD [Physician] - Cj Vidal ARNP [Primary Care Provider] - Stand Alone Forms: Patient Portal/API <Rohan Ledezma DO - Last Filed: 10/08/22 08:44> Cosign ED Attending Krystyna Attestation: I was immediately available in the department for consultation. Documentation has been reviewed. I agree with assessment and plan.
[2022-10-07] MEDS: FLUORESCEIN 1 MG STRIP EYE-LEFT (10:46)
[2022-10-07] MEDS: PROPARACAINE 0.5% OPHTH SOL 1 DROPS EYE-LEFT (10:46)
[2022-10-07] MEDS: ERYTHROMYCIN OPHTH 1 GM OINT 1 APPLIC EYE-LEFT (10:46)
== END 2022-10-07 11:11 | disposition home or self-care (01) ==
PROVIDERS: Emergency Provider Nurse Practitioner Critical Care Medicine; PCP Registered Nurse Diabetes Educator
DX: H10.32 Unspecified acute conjunctivitis, left eye (principal)
CPT/HCPCS: 99282

== ENCOUNTER → 2022-12-27 11:30 | Outpatient (CLI) | payer OTHER, SELFPAY ==
[2022-12-27 14:04] LABS: Creatinine Urine Random 93.6 mg/dL
[2022-12-27 14:14] LABS: Microalbumi Creatinin Ratio Ur 12.8 ug/mg CR (<30); Microalbumin Urine Random 1.2 mg/dL (0-1.6)
== END ==
PROVIDERS: PCP Registered Nurse Diabetes Educator; Visit Provider Registered Nurse Diabetes Educator
DX: O13.9 Gestational [pregnancy-induced] hypertension without significant proteinuria, unspecified trimester (principal)
CPT/HCPCS: 82043; 82570

== ENCOUNTER 2023-05-05 07:49 | Day surgery (SDC) | payer OTHER, SELFPAY ==
[2023-04-28 13:21] VITALS: BMI 36.6
--- NOTE | 2023-05-05 | PATH_ITS ---
[facility] Accession Number: [id number] No. of containers..01 Tissue . 01 Material submitted: . fallopian tube - BILATERAL FALLOPIAN TUBES . 01 Diagnosis: Bilateral Fallopian Tubes, Bilateral Salpingectomy: Segments of fallopian tubes without diagnostic abnormalities. MRV 05/11/2023 1845 Local . 01 Electronically signed: . Reina Doe MD, Pathologist NPI- [id number] . 01 Gross description: . The specimen is received in formalin labeled with the patient's name, , and bilateral fallopian tubes, consists of two unoriented fimbriated fallopian tubes. The first is intact and measures 5.2 x 0.4 cm while the second has the fimbriae separate from the tube and is reapproximated to measure 5.2 x 0.5 cm. The serosa of both tubes is llanos and smooth with no cystic structures identified. Sectioning reveals unremarkable stellate lumens. Yarding Supervisor sections to include one-half of bisected fimbriae and cross sections are submitted as follows: . A1: Intact fallopian tube. A2: Fragmented fallopian tube. ([id number]) /MRV 05/06/2023 1319 Local . 01 Pathologist provided ICD-10: Z30.2 . 01 CPT . 397820 Specimen Comment: A courtesy copy of this report has been sent to [phone] Performed at: [facility] [address] [place] [address], [place], [place] [id number] MD George Mendieta MD Phone: [phone]
[2023-05-05 08:03] VITALS: BP 134/86; PULSE 76; RESP 16; TEMP 36.6; O2SAT 100; BMI 36.9
[2023-05-05] MEDS: SCOPOLAMINE 1 PATCH TOP (08:12)
[2023-05-05] MEDS: LACTATED RINGERS 1,000 ML 42 ML IV (08:12)
--- NOTE | 2023-05-05 08:36 | PM.GYNHP.1 ---
History of Present Illness History of Present Illness Narrative: Mayda Cruz is a 33 year old female 1 para 1 who presents for a laparoscopic bilateral salpingectomy Desires permanent sterilization [facility] Medical History Gestational hypertension (~2021) Anxiety Mild persistent asthma ADHD (~1996) Depression Degenerative disc disease (~2010) Osteoarthritis (~2010) Scoliosis (~2010) Asthma (~1995) Surgical History Anesthesia History of section (~09/11/21) [place] teeth removed (~2018) Family History Mother Hypertension Hyperlipidemia Diabetes mellitus Depression TIA (transient ischemic attack) Father Rheumatoid arthritis Shingles Hypertension Grandmother Diabetes mellitus TIA (transient ischemic attack) Cancer Grandfather Cancer Grandmother Unknown family medical history Grandfather Unknown family medical history Social History marital status: unmarried,living together household members: spouse lives independently: Yes caregiver/support person: No pets and animals: Yes (3 cats, 11 rabits, rescues cats and rabbits) occupational status: employed current occupational exposures/hazards: Yes (high stress enviornment) Previous occupational history: [employer] jaziel/restorationist: None special jaziel needs: No travel history: recent (drove to [facility]) Smoking Status: Never smoker alcohol intake: former substance use type: does not use Meds Home Medications and Allergies Home Medications Medication Instructions Recorded Confirmed Type levalbuterol HCl 1.25 mg/3 mL 1.25 mg (3 mL) inhalation Q6H PRN 11/01/22 05/05/23 Rx solution for nebulization shortness of breath or wheezing #72 mL albuterol sulfate 90 mcg/actuation 2 puff inhalation Q4-6H PRN 03/21/23 05/05/23 Rx aerosol inhaler shortness of breath or wheezing #17 grams fluoxetine 10 mg capsule 30 mg (3 x 10 mg) PO DAILY #270 03/21/23 05/05/23 Rx caps fluticasone propionate 110 2 puff inhalation BID #36 grams 03/21/23 05/05/23 Rx mcg/actuation HFA aerosol inhaler (Flovent HFA) Allergies Allergy/AdvReac Type Severity Reaction Status Date / Time escitalopram [From Lexapro] Allergy Intermediate Tachycardia Verified 05/05/23 08:03 Exam Vital Signs (past 8 hours): - 05/05/23 08:03 Temperature 98 F Pulse Rate 76 Respiratory Rate 16 Blood Pressure 134/86 Pulse Oximetry 100 Oxygen Delivery Method Room Air Oxygen Flow Rate 0 Oxygen Delivery Method Room Air Oxygen Flow Rate 0 Narrative Exam Narrative: Generally: Patient lying on gurney, no acute distress HEENT: No thyromegaly, no anterior cervical or supraclavicular lymphadenopathy. Lungs:Clear to auscultation bilaterally, no wheezes. Cardiovascular: Regular rate and rhythm, no murmurs, rubs, or gallops. Abdomen: Well-healed Pfannenstiel scars. No hepatosplenomegaly. No masses palpable. External genitalia: Normal Vagina: Normal Cervix: Normal Bimanual exam: 7 Week size anteverted uterus. Mobile. Extremities: No edema Assessment & Plan Assessment & Plan narrative: Assessment: 33-year-old 1 para 1 desires permanent sterilization Plan: Laparoscopic bilateral salpingectomy The risks, benefits, and alternatives to the procedure were explained to the patient. The risks including bleeding, infection, injury to the bowel, bladder, or ureters. She understands these risks and agrees to proceed. A full par Q was held and consent form was signed. Time Spent With Patient Time with patient: less than 30 minutes
--- NOTE | 2023-05-05 08:38 | PM.PREOP ---
Pre-operative Note Interval Note History & Physical reviewed/Exam performed by Physician: Yes Changes to H&P: No H&P completed within 30 days and has changed as indicated here:: 05/05/23
[2023-05-05] MEDS: ACETAMINOPHEN IV 1,000 MG/100 ML VIAL 400 MG IV (09:05)
[2023-05-05] MEDS: BUPIVACAINE 0.5% (PF) 30 ML, EPINEPHrine 0.15 MG INJ (09:33)
--- NOTE | 2023-05-05 09:39 | SUR.OPER ---
Lithotomy on padded OR bed, head on pillow, arms secured on padded arm boards at <90 degrees abduction. Legs secured in padded yellow fins stirrups.
--- NOTE | 2023-05-05 10:02 | PM.GYNOP.1 ---
Operative Date/Time/Diagnoses Date of procedure: 05/05/23 Time of procedure: 10:02 Pre-op diagnosis: Desires permanent sterilization Nexplanon in place Post-op diagnosis: same Procedure & Clinicians Procedure: Procedures Operation Date: 05/05/23 08:45 Actual Procedure Side Surgeon p Laparoscopic Bilateral Salpingectomy, nexaplanon removal Mikayla Brody MD Indications: 33-year-old 1 para 1 who desires permanent sterilization. She has a Nexplanon in place Surgeon: Mikayla Brody Anesthesia Type: General and Local Operative Notes Findings: 8 week size anteverted uterus Normal tubes and ovaries Normal liver and gallbladder Normal appendix Closure Type: primary Specimen(s): left tube and right tube Estimated blood loss (mL): 3 Blood products transfused: none Procedure in detail: After informed consent was obtained, the patient was taken to the operating room where she was placed in the dorsal supine position. After adequate general endotracheal anesthesia was achieved, she was placed in the dorsal lithotomy position, and prepped and draped in the usual sterile fashion. A time-out was performed. A bivalve speculum was placed into the vagina and the anterior lip of the cervix was grasped with a single-tooth tenaculum. The cervical os was sequentially dilated until the Zumi uterine manipulator could pass easily into the endometrial cavity. The single-tooth tenaculum was removed from the anterior lip of the cervix. The bivalve speculum was removed from the vagina. Attention was then turned to the abdomen where 6 cc of 0.5% Marcaine with epinephrine were injected in the umbilical fold. A 5 mm incision was made. The Veress needle was placed into the peritoneal cavity, and its placement confirmed by aspiration and drop test. The abdominal cavity was insufflated with 3.2 L of CO2. The Veress needle was removed, and a long 5 mm trocar was placed without difficulty. Two other incisions were made 4 cm lateral to the midline after 6 cc of 0.5% Marcaine with epinephrine were injected. Care was taken to avoid any vessels in the abdominal wall. 5 mm incisions were made. Two 5 mm trocars were placed under direct visualization. The pelvis and abdomen were examined with the findings noted above. The right tube was grasped with an atraumatic grasper, using the power seal, the mesosalpinx was cauterized and cut all the way down to the cornua of the uterus. The tube was amputated at the cornua. The tube was removed through the right trocar. All of this was repeated on the patient's left side, with the left tube being brought through the left lateral trocar. The pelvis was examined and there was no bleeding noted. The instruments were removed from the abdomen. The CO2 was allowed to escape. The incisions were closed with 4-0 Monocryl in a subcuticular fashion. Steri-Strips and Allevyn dressings were placed. Attention was then turned to the underside of the left upper arm. It was cleaned with chlorhexidine. The Nexplanon was palpated. 5 cc of 0.5% Marcaine were injected along the path of the Nexplanon. A 3 mm incision was made. The distal end of the Nexplanon was palpated and then pressure was applied and the proximal end could be visualized through the 3 mm incision. The proximal end was grasped with a hemostat and the Nexplanon was removed without difficulty. Pressure was held for hemostasis. Steri-Strips and Allevyn dressing were applied. Sponge, lap, and instrument counts were correct x2. The patient tolerated the procedure well, and was taken to PACU in stable condition. Complications: none Post-operative Condition: stable Disposition: PACU Plan for aftercare: Home after recovery
[2023-05-05 10:10] VITALS: BP 104/57; PULSE 92; RESP 16; TEMP 36.2; O2SAT 98
[2023-05-05 10:15] VITALS: BP 106/66; PULSE 95; RESP 16; O2SAT 98
[2023-05-05 10:25] VITALS: BP 148/68; PULSE 102; RESP 156; TEMP 36.2; O2SAT 99
[2023-05-05 10:34] VITALS: BP 148/63; PULSE 98; RESP 16; TEMP 36.2; O2SAT 98
== END 2023-05-05 11:05 | disposition home or self-care (01) ==
PROVIDERS: PCP Registered Nurse Diabetes Educator; Referring Provider Obstetrics & Gynecology; Visit Provider Obstetrics & Gynecology
PROC: (CPT 58661; principal; 2023-05-05 08:45)
DX: Z30.2 Encounter for sterilization (principal); Z30.46 Encounter for surveillance of implantable subdermal contraceptive
CPT/HCPCS: 58661; 11983; 81025; J0136; J0171; J1100; J1885; J2250; J2405; J2704; J3010

== ENCOUNTER → 2024-05-09 09:10 | Outpatient (CLI) | payer OTHER, SELFPAY ==
[2024-05-09 09:46] LABS: Hematocrit 38.8 % (36-46); Hemoglobin 12.8 g/dL (12.0-16.0); Mean Corpuscular Hemoglobin 28.9 PG (26-34); Mean Corpuscular Volume 87.5 fL (80-100); Platelet Count 323 X10^3/uL (150-400); Red Blood Cell Count 4.43 X10^6/uL (4.0-5.2); Red Cell Distribution Width 13.8 % (11.6-14.8); White Blood Cell Count 13.1 X10^3/uL (4.5-11.0)
[2024-05-09 09:55] LABS: Hemoglobin A1C% w Est Avg Glu 5.2 % (4.0-6.0)
[2024-05-09 10:05] LABS: Alanine Aminotransferase 32 IU/L (<35); Albumin 4.4 g/dL (3.5-5.0); Albumin Globulin Ratio 1.3 (1.0-2.8); Alkaline Phosphatase 89 U/L (38-126); Aspartate Aminotransferase 36 IU/L (14-36); BUN Creatinine Ratio 17.4 (6-22); Bilirubin Total 0.3 mg/dL (0.2-1.3); Blood Urea Nitrogen 15 mg/dL (7-17); Calcium 9.6 mg/dL (8.4-10.2); Carbon Dioxide 29 mmol/L (22-32); Chloride 102 mmol/L (98-107); Cholesterol 213 mg/dL (140-199); Estimated Glomerular Filt Rate > 60 mL/min (>60); Globulin 3.3 g/dL (1.7-4.1); Glucose 90 mg/dL (70-100); HDL Cholesterol 42 mg/dL (40-60); HEMOLYSIS < 15 (0-50); LDL Cholesterol Calculated 139 mg/dL (<100); Potassium 4.7 mmol/L (3.4-5.1); Sodium 139 mmol/L (137-145); Total Protein 7.7 g/dL (6.3-8.2); Triglycerides 159 mg/dL (35-150)
[2024-05-09 10:21] LABS: Prolactin 16.6 ng/mL (3.0-18.6)
[2024-05-09 10:22] LABS: Free T4, Direct Thyroxine 0.88 ng/dL (0.78-2.19)
[2024-05-09 10:23] LABS: Follicle Stimulating Hormone 5.66 mIU/mL
[2024-05-09 10:36] LABS: Thyroid Stimulating Hormone 0.621 uIU/mL (0.47-4.68)
[2024-05-09 10:37] LABS: Testosterone 35.1 ng/dL (5.71-77.0)
[2024-05-09 10:39] LABS: Estradiol, Total 55.5 pg/mL
== END ==
PROVIDERS: PCP Registered Nurse Diabetes Educator; Referring Provider Registered Nurse Diabetes Educator; Visit Provider Registered Nurse Diabetes Educator
DX: E66.9 Obesity, unspecified (principal); N91.5 Oligomenorrhea, unspecified; L68.0 Hirsutism; Z83.3 Family history of diabetes mellitus
CPT/HCPCS: 36415; 80053; 80061; 82670; 83001; 83036; 84146; 84403; 84439; 84443; 85027

== ENCOUNTER → 2024-10-23 10:51 | Outpatient (CLI) | payer OTHER, SELFPAY ==
[2024-10-23 12:22] LABS: Add Manual Diff / Slide Review NO; Basophils Absolute Auto 0 /uL (0-100); Basophils Percent Auto 0.3 % (0-2); Eosinophils Absolute Auto 1100 /uL (0-450); Eosinophils Percent Auto 7.3 % (2-4); Hematocrit 35.6 % (36-46); Hemoglobin 11.8 g/dL (12.0-16.0); Lymphocytes Absolute Auto 3500 /uL (1100-4500); Lymphocytes Percent Auto 23.2 % (25-40); Mean Corpuscular HGB Conc 33.3 % (30-36); Mean Corpuscular Hemoglobin 29.2 PG (26-34); Mean Corpuscular Volume 87.7 fL (80-100); Monocytes Absolute Auto 900 /uL (0-900); Neutrophils Absolute Auto 9500 /uL (1500-7000); Neutrophils Percent Auto 63.2 % (50-75); Platelet Count 314 X10^3/uL (150-400); Red Blood Cell Count 4.06 X10^6/uL (4.0-5.2); Red Cell Distribution Width 13.6 % (11.6-14.8); White Blood Cell Count 15.1 X10^3/uL (4.5-11.0)
[2024-10-23 13:03] LABS: Vitamin D 25 Hydroxy (D3) 15.5 ng/mL (30.0-100.0)
== END ==
LOC: LAB 10:53
PROVIDERS: PCP Registered Nurse Diabetes Educator; Referring Provider Registered Nurse Diabetes Educator; Visit Provider Registered Nurse Diabetes Educator
DX: F32.A Depression, unspecified (principal); R53.83 Other fatigue; D72.829 Elevated white blood cell count, unspecified
CPT/HCPCS: 36415; 82306; 85025

== ENCOUNTER → 2025-02-20 08:42 | Outpatient (CLI) | payer OTHER, SELFPAY ==
[2025-02-20 09:48] LABS: Vitamin D 25 Hydroxy (D3) 55.5 ng/mL (30.0-100.0)
== END ==
LOC: LAB 08:43
PROVIDERS: PCP Registered Nurse Diabetes Educator; Referring Provider Registered Nurse Diabetes Educator; Visit Provider Registered Nurse Diabetes Educator
DX: E55.9 Vitamin D deficiency, unspecified (principal)
CPT/HCPCS: 36415; 82306